=== PATIENT | female | born 1955 | race Caucasian/White ===

== ENCOUNTER 2017-12-06 17:34 | Emergency (ER) | payer OTHER, SELFPAY ==
[2017-12-06 17:46] VITALS: BP 155/73; PULSE 64; RESP 18; TEMP 36.3; O2SAT 100; BMI 24.7
--- NOTE | 2017-12-06 18:14 | ED_ITS ---
HPI - Headache <Huong Molina PA-C - Last Filed: 12/06/17 21:48> General Chief Complaint: Headache Stated Complaint: HEADACHE,NAUSEA,VOMITING Time Seen by Provider: 12/06/17 18:09 Source: patient and family Mode of arrival: ambulatory Limitations: no limitations History of Present Illness HPI Narrative: This 62-year-old female comes in due to migraine headache. She developed these headaches a couple of years ago that awaken her from sleep in the middle of the night. She saw Dr. London and had workup including MRI and was diagnosed with hypnic headache. She has tried caffeine which is been ineffective. She used to take large doses of ibuprofen and was diagnosed with duodenal ulcer so has had to discontinue all of those. She states that sometimes if she just rest in a dark room headaches will resolve, however this 1 has not. She states this is a typical bad headache for her, all over her head , ?splitting?. She states she has light sensitivity but normal vision. She has had nausea and vomiting and not had food or fluids today. She does not feel like this is different from her typical headache. She states that she has been sweating a little bit and not sure whether that is different, however she has not had any fever, recent upper respiratory symptoms, new chest pain, dyspnea, abdominal pain or other complaints Related Data Home Medications Medication Instructions Recorded Confirmed [SPIRULINA] #0 05/10/16 11/20/17 cholecalciferol (vitamin D3) 10,000 unit PO #0 05/10/16 11/20/17 omeprazole #0 01/22/17 11/20/17 clobetasol-emollient #0 02/04/17 11/20/17 Previous Rx's Medication Instructions Recorded coal tar [Elton-Gel Tar Shampoo] 1 rae TP HS PRN #118 ml 05/10/16 hydrocodone-acetaminophen 1 tab PO Q6HP PRN #30 tab 10/01/17 prednisone 10 mg PO SEE INSTRUCTIONS #14 tab 10/03/17 dextroamphetamine-amphetamine 10 mg PO QAM #60 tab 10/14/17 [Adderall] tramadol 50 mg tablet 50 mg PO Q6H PRN #60 tab 11/04/17 indomethacin 25 mg capsule 25 mg PO TID PRN #30 cap 11/11/17 colchicine 0.6 mg capsule 0.6 mg PO DAILY #30 cap 11/20/17 tramadol 50 mg tablet 100 mg PO TID PRN #60 tab 11/20/17 duloxetine 30 mg capsule,delayed 90 mg PO QDAY #90 cap 12/03/17 release Allergies Allergy/AdvReac Type Severity Reaction Status Date / Time grass pollen [GRASS POLLEN] Allergy Intermediate hayfever Verified 12/06/17 23: 56 mold [MOLD] Allergy Intermediate hayfever Verified 12/06/17 23:56 acetaminophen [From Vicodin] AdvReac Verified 12/06/17 23:56 hydrocodone [From Vicodin] AdvReac Verified 12/06/17 23:56 NSAIDS (Non-Steroidal AdvReac Verified 12/06/17 23:56 Anti-Inflamma sheelfish Allergy Severe anaphalaxis Uncoded 10/15/17 12:38 dust Allergy Intermediate hayfever Uncoded 10/15/17 12:38 weeds Allergy Intermediate hayfever Uncoded 10/15/17 12:38 Exam <Huong Molina PA-C - Last Filed: 12/06/17 21:48> Narrative Exam Narrative: GENERAL APPEARANCE: Patient resting in dark room, in NAD HEENT: PERRL, EOMI, normal TMs and oropharynx NECK: Supple LUNGS: Clear to auscultation bilaterally. HEART: Rate and rhythm regular without murmur, normal S1 and S2, no S3 or S4. ABDOMEN: Soft, NT, ND, + BS x 4 quadrants NEUROLOGIC: Alert and oriented, normal speech, and coordination. MUSCULOSKELETAL: Full Csp AROM Initial Vital Signs Initial Vital Signs: Vital Signs Temperature 97.4 F L 12/06/17 17:46 Pulse Rate 64 12/06/17 17:46 Respiratory Rate 18 12/06/17 17:46 Blood Pressure 155/73 H 12/06/17 17:46 Pulse Oximetry 100 12/06/17 17:46 <Jerad Marin DO - Last Filed: 12/07/17 00:55> Initial Vital Signs Initial Vital Signs: Vital Signs Temperature 97.4 F L 12/06/17 17:46 Pulse Rate 64 12/06/17 17:46 Respiratory Rate 18 12/06/17 17:46 Blood Pressure 155/73 H 12/06/17 17:46 Pulse Oximetry 100 12/06/17 17:46 Course <Huong Molina PA-C - Last Filed: 12/06/17 21:48> Hospital Course: Patient reported marked improvement in her pain and nausea with medications and IV fluids. She felt comfortable returning home. She was able to tolerate p.o. fluids and crackers prior to discharge Orders Ordered: Discontinued Medications Hydromorphone HCl (Dilaudid) 1 mg IV NOW ONE Stop: 12/06/17 18:29 Last Admin: 12/06/17 18:35 Dose: 1 mg Sodium Chloride (Normal Saline 0.9%) 1,000 mls @ 1,000 mls/hr IV BOLUS ONE Stop: 12/06/17 19:27 Last Infusion: 12/06/17 19:51 Dose: 0 mls/hr Admin: 12/06/17 18:35 Dose: 1,000 mls/hr Ondansetron HCl (Zofran) 4 mg IV NOW ONE Stop: 12/06/17 18:29 Last Admin: 12/06/17 18:35 Dose: 4 mg Vital Signs - 8 hr 12/06/17 17:46 12/06/17 20:20 Temperature 97.4 F L Pulse Rate 64 78 Respiratory Rate 18 15 Blood Pressure 155/73 H 127/72 H Pulse Oximetry 100 98 <Jerad Marin DO - Last Filed: 12/07/17 00:55> Orders Ordered: Discontinued Medications Hydromorphone HCl (Dilaudid) 1 mg IV NOW ONE Stop: 12/06/17 18:29 Last Admin: 12/06/17 18:35 Dose: 1 mg Sodium Chloride (Normal Saline 0.9%) 1,000 mls @ 1,000 mls/hr IV BOLUS ONE Stop: 12/06/17 19:27 Last Infusion: 12/06/17 19:51 Dose: 0 mls/hr Admin: 12/06/17 18:35 Dose: 1,000 mls/hr Ondansetron HCl (Zofran) 4 mg IV NOW ONE Stop: 12/06/17 18:29 Last Admin: 12/06/17 18:35 Dose: 4 mg Vital Signs - 8 hr 12/06/17 17:46 12/06/17 20:20 Temperature 97.4 F L Pulse Rate 64 78 Respiratory Rate 18 15 Blood Pressure 155/73 H 127/72 H Pulse Oximetry 100 98 Discharge Plan Departure Patient Disposition: Home, Self-Care Clinical Impression: Hypnic headache Discharge Date/Time: 12/06/17 20:23 Interventions: ED Discharge Assessment Last Done: 12/06/17 20:20 Instructions: DI for Migraine Activity Restrictions/Additional Instructions: You have had a good response to IV medications and fluids today. We have treated this similarly to a bad migraine and avoid anti-inflammatories due to your ulcer. Please rest in a quiet room tonight, drink fluids and try to have some bland food. Avoid loud noise and light. You should return if any new or acutely worsening symptoms. If you start to have more persistent headaches, you should talk with Dr London about effective home treatments. You may wish to talk with her about nausea medicine by suppository to have at home since oral medications have not been effective for you but the IV medicine was helpful today. Prescriptions: No Action tramadol 50 mg tablet 100 mg PO TID PRN (Reason: pain) Qty: 60 RF: 0 colchicine 0.6 mg capsule 0.6 mg PO DAILY Qty: 30 RF: 0 cholecalciferol (vitamin D3) 10,000 UNIT tablet 10,000 unit PO Qty: 0 RF: 0 [SPIRULINA] Qty: 0 RF: 0 coal tar [Elton-Gel Tar Shampoo] 118 ML shampoo 1 rae TP HS PRNQty: 118 RF: 1 omeprazole 40 MG capsule,delayed release(DR/EC) Qty: 0 RF: 0 clobetasol-emollient 0.05 % Cream Qty: 0 RF: 0 hydrocodone-acetaminophen 5 MG/325 MG tablet 1 tab PO Q6HP PRNQty: 30 RF: 0 prednisone 10 MG tablet 10 mg PO SEE INSTRUCTIONS Qty: 14 RF: 0 dextroamphetamine-amphetamine [Adderall] 10 MG tablet 10 mg PO QAM Qty: 60 RF: 0 tramadol 50 mg tablet 50 mg PO Q6H PRN (Reason: pain) Qty: 60 RF: 0 indomethacin 25 mg capsule 25 mg PO TID PRN (Reason: pain) Qty: 30 RF: 0 duloxetine 30 mg capsule,delayed release(DR/EC) 90 mg PO QDAY Qty: 90 RF: 2 Referrals: Eva Gutierrez PA-C [Primary Care Provider] - Radha Lodnon MD [Non-Staff] - <Jerad Marin DO - Last Filed: 12/07/17 00:55> Cosign ED Attending Bee Attestation: I was immediately available in the department for consultation. Documentation has been reviewed. I agree with assessment and plan.
[2017-12-06] MEDS: SODIUM CHLORIDE 0.9% 1,000 ML 1000 ML IV (18:35)
[2017-12-06] MEDS: HYDROMORPHONE 0.5 MG INJ 1 MG IV (18:35)
[2017-12-06] MEDS: ONDANSETRON 4 MG/2 ML INJ IV (18:35)
[2017-12-06 20:20] VITALS: BP 127/72; PULSE 78; RESP 15; O2SAT 98
== END 2017-12-06 20:23 | disposition home or self-care (01) ==
PROVIDERS: Emergency Provider Internal Medicine; PCP Physician Assistant
DX: R51 Headache (principal)
CPT/HCPCS: 36591; 99283; J1170; J2405

== ENCOUNTER 2017-12-06 23:45 | Emergency (ER) | payer OTHER, SELFPAY ==
[2017-12-06 23:56] VITALS: BP 135/82; PULSE 80; RESP 17; TEMP 36.1; O2SAT 100; BMI 24.7
--- NOTE | 2017-12-07 00:01 | ED.HA ---
HPI - Headache General Chief Complaint: Headache Stated Complaint: SEVERE MIGRAINE Time Seen by Provider: 12/06/17 23:59 Source: patient Mode of arrival: ambulatory Limitations: no limitations History of Present Illness HPI Narrative: Patient presents to the emergency department this morning, for the 2nd time today for evaluation of a terrible whole head headache. It started last evening and persisted through the day. She was seen and evaluated in the emergency department earlier and felt much better after some Dilaudid and Zofran. She went home for few hours and returned with intensified symptoms. She denies any recent injury or illness. She does have a history of hypnic headaches diagnosed by neurology at [facility]. MD Complaint: headache and migraine Onset (ago): hour(s) Onset description: gradual Severity: severe Quality: aching and throbbing Relieving factors: dark room Exacerbating factors: exertion, light and noise Context: occurred at rest Associated symptoms: nausea and vomiting Related Data Home Medications Medication Instructions Recorded Confirmed [SPIRULINA] #0 05/10/16 11/20/17 cholecalciferol (vitamin D3) 10,000 unit PO #0 05/10/16 11/20/17 omeprazole #0 01/22/17 11/20/17 clobetasol-emollient #0 02/04/17 11/20/17 Previous Rx's Medication Instructions Recorded coal tar [Elton-Gel Tar Shampoo] 1 rae TP HS PRN #118 ml 05/10/16 hydrocodone-acetaminophen 1 tab PO Q6HP PRN #30 tab 10/01/17 prednisone 10 mg PO SEE INSTRUCTIONS #14 tab 10/03/17 dextroamphetamine-amphetamine 10 mg PO QAM #60 tab 10/14/17 [Adderall] tramadol 50 mg tablet 50 mg PO Q6H PRN #60 tab 11/04/17 indomethacin 25 mg capsule 25 mg PO TID PRN #30 cap 11/11/17 colchicine 0.6 mg capsule 0.6 mg PO DAILY #30 cap 11/20/17 tramadol 50 mg tablet 100 mg PO TID PRN #60 tab 11/20/17 duloxetine 30 mg capsule,delayed 90 mg PO QDAY #90 cap 12/03/17 release Allergies Allergy/AdvReac Type Severity Reaction Status Date / Time grass pollen [GRASS POLLEN] Allergy Intermediate hayfever Verified 12/06/17 23:56 mold [MOLD] Allergy Intermediate hayfever Verified 12/06/17 23:56 acetaminophen [From Vicodin] AdvReac Verified 12/06/17 23:56 hydrocodone [From Vicodin] AdvReac Verified 12/06/17 23:56 NSAIDS (Non-Steroidal AdvReac Verified 12/06/17 23:56 Anti-Inflamma sheelfish Allergy Severe anaphalaxis Uncoded 10/15/17 12:38 dust Allergy Intermediate hayfever Uncoded 10/15/17 12:38 weeds Allergy Intermediate hayfever Uncoded 10/15/17 12:38 Review of Systems Review of Systems All systems reviewed & are unremarkable except as noted in HPI and below Constitutional Denies chills, Denies fever(s), Reports headache(s), Denies lethargy and Denies weakness Eyes Denies change in vision, Denies eye discharge, Denies irritation and Denies loss of vision ENT Ears, Nose, Mouth, and Throat: Denies change in voice, Reports headache(s), Denies neck pain and Denies sore throat Cardiovascular Denies chest pain, Denies irregular heart rhythm, Denies lightheadedness, Denies palpitations, Denies dyspnea, Denies dyspnea on exertion and Denies orthopnea Respiratory Denies cough, Denies dyspnea, Denies dyspnea on exertion and Denies wheezing Gastrointestinal Gastrointestinal: Denies abdominal pain, Denies change in bowel habits, Denies diarrhea, Denies nausea and Denies vomiting Genitourinary Denies hematuria, Denies flank pain, Denies urinary incontinence and Denies urinary urgency Musculoskeletal Denies neck pain Integumentary/Breasts Denies pruritus, Denies erythema, Denies rash and Denies wounds Neurologic Denies confusion, Reports headache(s), Denies loss of vision and Denies weakness Psychiatric Denies anxiety, Denies confusion, Denies depression, Denies homicidal ideation and Denies suicidal ideation Endocrine Denies palpitations Hematologic/Lymphatic Denies easy bruising Allergic/Immunologic Denies wheezing PFSH Medical History Hypnic headache (Chronic) Costochondritis (Chronic) Duodenal ulcer (Chronic) GERD without esophagitis (Chronic) Social History Smoking Status: Never smoker Exam Narrative Exam Narrative: 62-year-old female obviously in discomfort, in a dark room covering her eyes Initial Vital Signs Initial Vital Signs: Vital Signs Temperature 97.0 F L 12/06/17 23:56 Pulse Rate 80 12/06/17 23:56 Respiratory Rate 17 12/06/17 23:56 Blood Pressure 135/82 H 12/06/17 23:56 Pulse Oximetry 100 12/06/17 23:56 Const General: cooperative, well developed and acute distress Nutritional Appearance: well nourished Orientation: alert, awake, oriented x3 and not confused [facility] Head: normocephalic and atraumatic Ears: external ears normal and TM's normal bilaterally Nose: external nose normal and No nasal discharge Face and sinus: sinuses nontender, face symmetric, no sinus tenderness and No dry mucous membranes Mouth: oral mucosae normal and moist mucous membranes Teeth and gingiva: dentition normal Throat: tonsils normal and uvula midline Neck Neck: normal visual inspection, trachea midline, No lymphadenopathy, No midline deformity and No JVD Lymphatic: No lymphedema Resp Effort & Inspection: normal respiratory effort, able to speak in complete sentences, no respiratory distress and no use of accessory muscles Auscultation: clear to auscultation bilaterally, no rales, no rhonchi and no wheezes GI Inspection: non-distended Palpation: soft, no hepatosplenomegaly, No guarding, No pulsatile mass and No tender Auscultation: normal bowel sounds Back/Spine/Pelvis Back: No CVA tenderness Cervical Spine: cervical ROM normal and No pain with cervical ROM Thoracic/Lumbar Spine: thoracic and lumbar spine normal to inspection Neuro General: alert, oriented x3, gait normal and no focal motor deficits Speech: speech normal Gait: normal gait Motor: muscle tone normal throughout Other: NIH Stroke Scale 1a. LOC: Patient is alert and keenly responsive (0) 1b. LOC Questions: Patient answers both LOC questions accurately (0) 1c. LOC Commands: Patient performs both tasks correctly (0) 2. Best Gaze: Normal (0) 3. Visual: No visual loss (0) 4. Facial palsy: Normal symmetrical movements (0) 5. Motor arm: No drift (0) 6. Motor leg: No drift (0) 7. Limb ataxia: Absent (0) 8. Sensory: Normal (0) 9. Best language: No aphasia; normal (0) 10. Dysarthria: Normal (0) 11. Extinction and inattention: No abnormality (0) NIHSS: 0 Extrem General: full ROM, no clubbing, cyanosis or edema, no pedal edema and no calf tenderness Psych Appearance: well kempt Mental Status: mental status grossly normal Attitude: cooperative Thought Content: normal and suicidality Judgment: judgment good Course Orders Ordered: ED Orders 12/07/17 00:28 CT head/brain wo con Stat Discontinued Medications Diphenhydramine HCl (Benadryl) 25 mg IV NOW ONE Stop: 12/07/17 00:13 Last Admin: 12/07/17 00:36 Dose: 25 mg Sodium Chloride (Normal Saline 0.9%) 1,000 mls @ 1,000 mls/hr IV BOLUS ONE Stop: 12/07/17 01:11 Last Infusion: 12/07/17 02:07 Dose: 0 mls/hr Admin: 12/07/17 00:36 Dose: 1,000 mls/hr Ketorolac Tromethamine (Toradol) 15 mg IV NOW ONE Stop: 12/07/17 01:37 Last Admin: 12/07/17 01:45 Dose: 15 mg Metoclopramide HCl (Reglan) 10 mg IV NOW ONE Stop: 12/07/17 00:13 Last Admin: 12/07/17 00:36 Dose: 10 mg Reevaluation(s) Reevaluation #1: patient has near total resolution of symptoms after above stated therapies. She refused decadron as steroids make her feel strange. Time: 02:28 Vital Signs - 8 hr 12/06/17 23:56 12/07/17 00:46 12/07/17 02:25 Temperature 97.0 F L Pulse Rate 80 98 H Respiratory Rate 17 16 Blood Pressure 135/82 H Blood Pressure [Left Arm] 119/74 Pulse Oximetry 100 100 98 MDM - Headache Differential Diagnosis Differential diagnosis: Likely migraine, tension headache, subarachnoid hemorrhage, headache, meningitis and sinusitis Medical Records Attestation: I reviewed the patient's medical records. Imaging Data CT scan - head: Radiologist's impression: NAP Discharge Plan Departure Patient Disposition: Home, Self-Care Clinical Impression: Hypnic headache Instructions: DI for Migraine Prescriptions: No Action tramadol 50 mg tablet 100 mg PO TID PRN (Reason: pain) Qty: 60 RF: 0 colchicine 0.6 mg capsule 0.6 mg PO DAILY Qty: 30 RF: 0 cholecalciferol (vitamin D3) 10,000 UNIT tablet 10,000 unit PO Qty: 0 RF: 0 [SPIRULINA] Qty: 0 RF: 0 coal tar [Elton-Gel Tar Shampoo] 118 ML shampoo 1 rae TP HS PRNQty: 118 RF: 1 omeprazole 40 MG capsule,delayed release(DR/EC) Qty: 0 RF: 0 clobetasol-emollient 0.05 % Cream Qty: 0 RF: 0 hydrocodone-acetaminophen 5 MG/325 MG tablet 1 tab PO Q6HP PRNQty: 30 RF: 0 prednisone 10 MG tablet 10 mg PO SEE INSTRUCTIONS Qty: 14 RF: 0 dextroamphetamine-amphetamine [Adderall] 10 MG tablet 10 mg PO QAM Qty: 60 RF: 0 tramadol 50 mg tablet 50 mg PO Q6H PRN (Reason: pain) Qty: 60 RF: 0 indomethacin 25 mg capsule 25 mg PO TID PRN (Reason: pain) Qty: 30 RF: 0 duloxetine 30 mg capsule,delayed release(DR/EC) 90 mg PO QDAY Qty: 90 RF: 2 Referrals: Eva Gutierrez PA-C [Primary Care Provider] -
--- NOTE | 2017-12-07 00:28 | DI.CT.S_ITS ---
PROCEDURE: CT HEAD/BRAIN WO CON INDICATIONS: worst headache, second visit today TECHNIQUE: Noncontrast 4.5 mm thick angled axial sections acquired from the foramen magnum to the vertex, with coronal and sagittal reformats. For radiation dose reduction, the following was used: automated exposure control, adjustment of mA and/or kV according to patient size. COMPARISON: [facility], MR, MR BRAIN WO CON, 05/22/2016, 13:55. FINDINGS: Image quality: Excellent. CSF spaces: Basal cisterns are patent. No extra-axial fluid collections. The ventricles are symmetric in size and shape. Brain: No intracranial bleeds or masses. The punctate calcification is present within the right lentiform nucleus seen on the previous brain MRI dated 05/22/16. There is cerebral volume loss for age, with resultant ventricular and sulcal prominence. There are periventricular and deep white matter chronic small vessel ischemic changes. There is intracranial internal carotid artery atherosclerosis. Skull and face: Calvarium and visualized facial bones appear intact, without suspicious lesions. Sinuses: Visualized sinuses and mastoids are clear. IMPRESSION: 1. No acute intracranial findings. 2. Mild findings likely associated with microvascular ischemic changes. These findings are concordant with the overnight interpretation. Dictated by: Kassandra Sarabia M.D. on 12/07/2017 at 8:16 Approved by: Kassandra Sarabia M.D. on 12/07/2017 at 8:18
[2017-12-07] MEDS: SODIUM CHLORIDE 0.9% 1,000 ML 1000 ML IV (00:36)
[2017-12-07] MEDS: METOCLOPRAMIDE 10 MG/2 ML INJ IV (00:36)
[2017-12-07] MEDS: diphenhydrAMINE 50 MG/ML VIAL 25 MG IV (00:36)
--- NOTE | 2017-12-07 00:37 | PC.NURSE ---
Pt here earlier with same, sx. After going home her sx returned.
[2017-12-07 00:46] VITALS: O2SAT 100
[2017-12-07] MEDS: KETOROLAC 60 MG/2 ML VIAL 15 MG IV (01:45)
[2017-12-07 02:25] VITALS: BP 119/74; PULSE 98; RESP 16; O2SAT 98
--- NOTE | 2017-12-07 02:25 | PC.NURSE ---
Pt ambulated to bathroom and return to bed. Reports PATEL improved to 4/10 and nausea better. Pt taking sips of water. MD aware of the above.
== END 2017-12-07 02:41 | disposition home or self-care (01) ==
PROVIDERS: Emergency Provider Emergency Medicine; PCP Physician Assistant
DX: G44.81 Hypnic headache (principal)
CPT/HCPCS: 36591; 70450; 82962; 96361; 96374; 96375; 99283; 99284; J1170; J1200; J1885; J2405; J2765

== ENCOUNTER 2017-12-27 20:17 | Emergency (ER) | payer OTHER, SELFPAY ==
[2017-12-27 20:24] VITALS: BP 130/75; PULSE 61; RESP 20; TEMP 36.1; O2SAT 100; BMI 24.7
--- NOTE | 2017-12-27 20:38 | ED.NAVMDI ---
HPI - Nausea/Vomiting/Diarrhea <Huong Molina PA-C - Last Filed: 12/27/17 22:21> General Chief complaint: Nausea/Vomiting/Diarrhea Stated complaint: DEHYDRATION/WEAKNESS Time Seen by Provider: 12/27/17 20:25 Source: patient and family Mode of arrival: ambulatory Limitations: no limitations History of Present Illness HPI Narrative: This 62-year-old female returns due to persistent and constant nausea which has been an ongoing problem, to the point she is unable to eat at all in the last 4 days without vomiting. She has been unable to even keep down fluids in the last 2 days. She has not had any abdominal pain at all with this. She has had headache, which is not like her usual migraine or hip thank headache, but is as severe. Headache seems to come on and is worse when she vomits, gradually gets a little bit better when vomiting subsides. She states that she has had frequent sweats, but no known fevers. She has chronic chest and rib pain for which she is seeing Rheumatology. She denies any acute or worsening chest pain. She denies any dyspnea. No new pain in the extremities. She denies any bowel habit change or blood in the stools. She denies any urinary symptoms Related Data Home Medications Medication Instructions Recorded Confirmed [SPIRULINA] #0 05/10/16 11/20/17 cholecalciferol (vitamin D3) 10,000 unit PO #0 05/10/16 11/20/17 omeprazole #0 01/22/17 11/20/17 clobetasol-emollient #0 02/04/17 11/20/17 Previous Rx's Medication Instructions Recorded coal tar [Elton-Gel Tar Shampoo] 1 rae TP HS PRN #118 ml 05/10/16 hydrocodone-acetaminophen 1 tab PO Q6HP PRN #30 tab 10/01/17 prednisone 10 mg PO SEE INSTRUCTIONS #14 tab 10/03/17 dextroamphetamine-amphetamine 10 mg PO QAM #60 tab 10/14/17 [Adderall] tramadol 50 mg tablet 50 mg PO Q6H PRN #60 tab 11/04/17 indomethacin 25 mg capsule 25 mg PO TID PRN #30 cap 11/11/17 colchicine 0.6 mg capsule 0.6 mg PO DAILY #30 cap 11/20/17 duloxetine 30 mg capsule,delayed 90 mg PO QDAY #90 cap 12/03/17 release tramadol 50 mg tablet 100 mg PO TID PRN #90 tab 12/24/17 ondansetron 4 mg PO Q6H PRN #14 tab 12/27/17 Allergies Allergy/AdvReac Type Severity Reaction Status Date / Time grass pollen [GRASS POLLEN] Allergy Intermediate hayfever Verified 12/06/17 23:56 mold [MOLD] Allergy Intermediate hayfever Verified 12/06/17 23:56 acetaminophen [From Vicodin] AdvReac Verified 12/06/17 23:56 hydrocodone [From Vicodin] AdvReac Verified 12/06/17 23:56 NSAIDS (Non-Steroidal AdvReac Verified 12/06/17 23:56 Anti-Inflamma sheelfish Allergy Severe anaphalaxis Uncoded 10/15/17 12:38 dust Allergy Intermediate hayfever Uncoded 10/15/17 12:38 weeds Allergy Intermediate hayfever Uncoded 10/15/17 12:38 Review of Systems <Huong Molina PA-C - Last Filed: 12/27/17 22:21> Review of Systems All systems reviewed & are unremarkable except as noted in HPI and below Exam <Huong Molina PA-C - Last Filed: 12/27/17 22:21> Narrative Exam Narrative: GENERAL APPEARANCE: Patient resting in a dark room with ice pack on her head, in NAD HEENT: PERRL, EOMI, normal oropharynx NECK: Supple LUNGS: Clear to auscultation bilaterally. CHEST: Mild sternal and rib TTP HEART: Rate and rhythm regular without murmur, normal S1 and S2, no S3 or S4. ABDOMEN: Soft, NT, ND, + BS x 4 quadrants NEUROLOGIC: Alert and oriented, normal speech and coordination. EXTREMITIES: no cyanosis or edema Initial Vital Signs Initial Vital Signs: Vital Signs Temperature 96.9 F L 12/27/17 20:24 Pulse Rate 61 12/27/17 20:24 Respiratory Rate 20 12/27/17 20:24 Blood Pressure 130/75 H 12/27/17 20:24 Pulse Oximetry 100 12/27/17 20:24 <Salina Ramirez DO - Last Filed: 12/28/17 06:14> Initial Vital Signs Initial Vital Signs: Vital Signs Temperature 96.9 F L 12/27/17 20:24 Pulse Rate 61 12/27/17 20:24 Respiratory Rate 20 12/27/17 20:24 Blood Pressure 130/75 H 12/27/17 20:24 Pulse Oximetry 100 12/27/17 20:24 Eyes EOM: EOM intact bilaterally Neck Neck: full ROM and no meningeal signs Chest Chest: normal inspection of the chest Resp Effort & Inspection: normal respiratory effort GI Inspection: normal to inspection Palpation: soft, No guarding, No rigid and No tender Auscultation: normal bowel sounds Neuro General: alert, awake and oriented x3 Cranial Nerves: CN's II-XI intact bilaterally Cognition: normal cognition Speech: speech normal Gait: normal gait Course <Huong Molina PA-C - Last Filed: 12/27/17 22:21> Orders Ordered: ED Orders 12/27/17 21:50 Complete Blood Count AUTO DIFF Stat Comprehensive Metabolic Panel Stat Lipase Stat Partial Thromboplastin Time Stat Prothrombin Time INR Stat Discontinued Medications Diphenhydramine HCl (Benadryl) 25 mg IV NOW ONE Stop: 12/27/17 20:52 Last Admin: 12/27/17 21:15 Dose: 25 mg Sodium Chloride (Normal Saline 0.9%) 1,000 mls @ 1,000 mls/hr IV BOLUS ONE Stop: 12/27/17 21:50 Last Infusion: 12/27/17 22:55 Dose: 0 mls/hr Admin: 12/27/17 21:15 Dose: 1,000 mls/hr Sodium Chloride (Normal Saline 0.9%) 1,000 mls @ 1,000 mls/hr IV BOLUS ONE Stop: 12/27/17 23:07 Last Admin: 12/27/17 23:21 Dose: Ketorolac Tromethamine (Toradol) 30 mg IV NOW ONE Stop: 12/27/17 21:49 Last Admin: 12/27/17 22:03 Dose: 30 mg Metoclopramide HCl (Reglan) 10 mg IV NOW ONE Stop: 12/27/17 20:52 Last Admin: 12/27/17 21:15 Dose: 10 mg Vital Signs - 8 hr 12/27/17 22:30 Pulse Rate 77 Respiratory Rate 16 Blood Pressure [Right Arm] 142/77 H Pulse Oximetry 100 <Salina Ramirez DO - Last Filed: 12/28/17 06:14> Orders Ordered: ED Orders 12/27/17 21:50 Complete Blood Count AUTO DIFF Stat Comprehensive Metabolic Panel Stat Lipase Stat Partial Thromboplastin Time Stat Prothrombin Time INR Stat Discontinued Medications Diphenhydramine HCl (Benadryl) 25 mg IV NOW ONE Stop: 12/27/17 20:52 Last Admin: 12/27/17 21:15 Dose: 25 mg Sodium Chloride (Normal Saline 0.9%) 1,000 mls @ 1,000 mls/hr IV BOLUS ONE Stop: 12/27/17 21:50 Last Infusion: 12/27/17 22:55 Dose: 0 mls/hr Admin: 12/27/17 21:15 Dose: 1,000 mls/hr Sodium Chloride (Normal Saline 0.9%) 1,000 mls @ 1,000 mls/hr IV BOLUS ONE Stop: 12/27/17 23:07 Last Admin: 12/27/17 23:21 Dose: Ketorolac Tromethamine (Toradol) 30 mg IV NOW ONE Stop: 12/27/17 21:49 Last Admin: 12/27/17 22:03 Dose: 30 mg Metoclopramide HCl (Reglan) 10 mg IV NOW ONE Stop: 12/27/17 20:52 Last Admin: 12/27/17 21:15 Dose: 10 mg Vital Signs - 8 hr 12/27/17 22:30 Pulse Rate 77 Respiratory Rate 16 Blood Pressure [Right Arm] 142/77 H Pulse Oximetry 100 MDM - Nausea/Vomiting/Diarrhea <Huong Molina PA-C - Last Filed: 12/27/17 22:21> Lab Data Result diagrams: 12/27/17 21:50 12/27/17 21:50 Lab Results 12/27/17 12/27/17 12/27/17 Range/Units 21:50 21:50 21:50 WBC 6.9 (4.5-11.0) X10^3/uL RBC 4.62 (4.0-5.2) X10^6/uL Hgb 14.7 (12.0-16.0) g/dL Hct 43.9 (36-46) % MCV 94.9 (80-100) fL MCH 31.8 (26-34) PG MCHC 33.5 (30-36) % RDW 13.3 (11.6-14.8) % Plt Count 274 (150-400) X10^3/uL Neut % (Auto) 71.5 (50-75) % Lymph % (Auto) 17.4 L (25-40) % [place] % (Auto) 6.6 (3-14) % Eos % (Auto) 3.8 (2-4) % Baso % (Auto) 0.7 (0-2) % Neut # (Auto) 4900 (6621-3831) /uL PT 10.5 (10.1-12.7) SECONDS INR 1.0 (0.9-1.3) APTT 35 (26.4-36.2) SECONDS Sodium 143 (137-145) mmol/L Potassium 3.8 (3.4-5.1) mmol/L Chloride 105 (98-107) mmol/L Carbon Dioxide 23 (22-32) mmol/L BUN 16 (7-17) mg/dL Creatinine 0.80 (0.52-1.04) mg/dL Estimated GFR > 60.0 (>60) mL/min BUN/Creatinine Ratio 20.0 (6-22) Glucose 92 (80-110) mg/dL Calcium 9.7 (8.4-10.2) mg/dL Total Bilirubin 0.6 (0.2-1.3) mg/dL AST 30 (14-36) IU/L ALT 26 (9-52) IU/L Alkaline Phosphatase 65 (38-126) U/L Total Protein 7.4 (6.3-8.2) g/dL Albumin 4.6 (3.5-5.0) g/dL Globulin 2.8 (1.7-4.1) g/dL Albumin/Globulin Ratio 1.6 (1.0-2.8) Lipase 90 (23-300) U/L Imaging Data CT scan - head: Radiologist's impression: View Report History [address] [address] [address] Scan Report Signed Patient: Tiffanie Martinez MR#: [id number] : 1955 Acct:[id number] Age/Sex: 62 / F Date of Service: 12/27/17 Loc: ED Accession Number: [id number] Procedure: CT head/brain wo con Ordering Provider: Huong Molina P.A-C PROCEDURE: CT HEAD/BRAIN WO CON INDICATIONS: Headache, vomiting TECHNIQUE: Noncontrast 4.5 mm thick angled axial sections acquired from the foramen magnum to the vertex, with coronal and sagittal reformats. For radiation dose reduction, the following was used: automated exposure control, adjustment of mA and/or kV according to patient size. COMPARISON: [facility], CT, CT HEAD/BRAIN WO CON, 12/07/2017, 1:07. FINDINGS: Image quality: Diagnostic. CSF spaces: Basal cisterns are patent. No extra-axial fluid collections. Ventricles are slightly prominent. There is corresponding parenchymal volume loss that is more prominent overlying the bilateral frontal lobes. Brain: No midline shift. No intracranial masses or hemorrhage. Montes-white matter interface is normal. Skull and face: Calvarium and visualized facial bones are intact, without suspicious lesions. Sinuses: Visualized sinuses and mastoids are clear. IMPRESSION: 1. No acute intracranial hemorrhage. 2. Mild parenchymal volume loss. Dictated by: Garth Mathias M.D. on 12/27/2017 at 21:44 Approved by: Garth Mathias M.D. on 12/27/2017 at 21:45 ECG Data Attestation: I personally reviewed and interpreted this ECG as follows: (Normal sinus rhythm with rate 64, normal axis) Prior ECG tracings: not available for review <Salina Ramirez DO - Last Filed: 12/28/17 06:14> Lab Data Attestation: I reviewed the patient's lab results. Lab Results 12/27/17 12/27/17 12/27/17 Range/Units 21:50 21:50 21:50 WBC 6.9 (4.5-11.0) X10^3/uL RBC 4.62 (4.0-5.2) X10^6/uL Hgb 14.7 (12.0-16.0) g/dL Hct 43.9 (36-46) % MCV 94.9 (80-100) fL MCH 31.8 (26-34) PG MCHC 33.5 (30-36) % RDW 13.3 (11.6-14.8) % Plt Count 274 (150-400) X10^3/uL Neut % (Auto) 71.5 (50-75) % Lymph % (Auto) 17.4 L (25-40) % [place] % (Auto) 6.6 (3-14) % Eos % (Auto) 3.8 (2-4) % Baso % (Auto) 0.7 (0-2) % Neut # (Auto) 4900 (5807-7402) /uL PT 10.5 (10.1-12.7) SECONDS INR 1.0 (0.9-1.3) APTT 35 (26.4-36.2) SECONDS Sodium 143 (137-145) mmol/L Potassium 3.8 (3.4-5.1) mmol/L Chloride 105 (98-107) mmol/L Carbon Dioxide 23 (22-32) mmol/L BUN 16 (7-17) mg/dL Creatinine 0.80 (0.52-1.04) mg/dL Estimated GFR > 60.0 (>60) mL/min BUN/Creatinine Ratio 20.0 (6-22) Glucose 92 (80-110) mg/dL Calcium 9.7 (8.4-10.2) mg/dL Total Bilirubin 0.6 (0.2-1.3) mg/dL AST 30 (14-36) IU/L ALT 26 (9-52) IU/L Alkaline Phosphatase 65 (38-126) U/L Total Protein 7.4 (6.3-8.2) g/dL Albumin 4.6 (3.5-5.0) g/dL Globulin 2.8 (1.7-4.1) g/dL Albumin/Globulin Ratio 1.6 (1.0-2.8) Lipase 90 (23-300) U/L Imaging Data CT scan - head: Radiologist's impression: INDICATIONS: Headache, vomiting TECHNIQUE: Noncontrast 4.5 mm thick angled axial sections acquired from the foramen magnum to the vertex, with coronal and sagittal reformats. For radiation dose reduction, the following was used: automated exposure control, adjustment of mA and/or kV according to patient size. COMPARISON: [facility], CT, CT HEAD/BRAIN WO CON, 12/07/2017, 1:07. FINDINGS: Image quality: Diagnostic. CSF spaces: Basal cisterns are patent. No extra-axial fluid collections. Ventricles are slightly prominent. There is corresponding parenchymal volume loss that is more prominent overlying the bilateral frontal lobes. Brain: No midline shift. No intracranial masses or hemorrhage. Montes-white matter interface is normal. Skull and face: Calvarium and visualized facial bones are intact, without suspicious lesions. Sinuses: Visualized sinuses and mastoids are clear. IMPRESSION: 1. No acute intracranial hemorrhage. 2. Mild parenchymal volume loss. Dictated by: Garth Mathias M.D. on 12/27/2017 at 21:44 ECG Data Attestation: I personally reviewed and interpreted this ECG as follows: Prior ECG tracings: not available for review Interpretation: Normal sinus rhythm rate [address] changes no ischemia normal intervals MDM Narrative Medical decision making narrative: The patient is having increasing headaches. No fever no sign of meningitis. 2 head CTs are negative. She may require an MRI. He also recommend that she follow up with Neurology and or headache specialist. Discharge Plan Departure Patient Disposition: Home, Self-Care Clinical Impression: Migraine Discharge Date/Time: 12/27/17 23:22 Interventions: ED Discharge Assessment Last Done: 12/27/17 23:18 Instructions: Migraine -- Adult Activity Restrictions/Additional Instructions: 1) You have been diagnosed with migraine headache 2) What to do: Drink frequent but small amounts of fluids. I recommend Gatorade or a Gatorade-like product, as it has small amounts of sugar and salts that improve fluid retention. 3) Take medications as directed -Zofran every 6 hr if needed for nausea this prescription has been faxed to [facility] 4) Follow up with your primary care provider in 2-3 days, recommend seeing headache specialist-there is a group associated with [facility] 5) Return to ER if you should have any new or worsening symptoms such as, change or worsening headache, unable to hold down fluids despite use of anti-nausea medications and the small volume oral rehydration strategy. Prescriptions: New ondansetron 4 mg tablet,disintegrating 4 mg PO Q6H PRN (Reason: nausea and vomiting) Qty: 14 RF: 0 No Action colchicine 0.6 mg capsule 0.6 mg PO DAILY Qty: 30 RF: 0 cholecalciferol (vitamin D3) 10,000 UNIT tablet 10,000 unit PO Qty: 0 RF: 0 [SPIRULINA] Qty: 0 RF: 0 coal tar [Elton-Gel Tar Shampoo] 118 ML shampoo 1 rae TP HS PRNQty: 118 RF: 1 omeprazole 40 MG capsule,delayed release(DR/EC) Qty: 0 RF: 0 clobetasol-emollient 0.05 % Cream Qty: 0 RF: 0 hydrocodone-acetaminophen 5 MG/325 MG tablet 1 tab PO Q6HP PRNQty: 30 RF: 0 prednisone 10 MG tablet 10 mg PO SEE INSTRUCTIONS Qty: 14 RF: 0 dextroamphetamine-amphetamine [Adderall] 10 MG tablet 10 mg PO QAM Qty: 60 RF: 0 tramadol 50 mg tablet 50 mg PO Q6H PRN (Reason: pain) Qty: 60 RF: 0 indomethacin 25 mg capsule 25 mg PO TID PRN (Reason: pain) Qty: 30 RF: 0 duloxetine 30 mg capsule,delayed release(DR/EC) 90 mg PO QDAY Qty: 90 RF: 2 tramadol 50 mg tablet 100 mg PO TID PRN (Reason: pain) Qty: 90 RF: 3 Referrals: [facility] [Provider Group] [facility] [Provider Group] [facility] [Provider Group] Eva Gutierrez PA-C [Primary Care Provider] - ED Cosign/Signout <Huong Molina PA-C - Last Filed: 12/27/17 22:21> Sign Out Provider Sign Out Attestation: I have reviewed findings available thus far with patient including no acute findings on head CT or EKG. She is feeling significantly better in terms of nausea and states this is largely resolved. She just received Toradol and lab came to redraw her labs so these are pending. History and exam findings including lack of abdominal tenderness reviewed with Dr. Ramirez who will monitor and continue care <Salina Ramirez DO - Last Filed: 12/28/17 06:14> Cosign ED Attending Cosignature Attestation: I was immediately available in the department for consultation. Documentation has been reviewed. I agree with assessment and plan. I have seen and evaluated patient myself. She is feeling much better. She states that she has had multiple nausea medications none of which have helped. She has been to the ED a few times now with headaches. She has never had this many this close together. I recommend that she follow up with Neurology or headache Clinic. She is tolerating oral fluids.
--- NOTE | 2017-12-27 20:51 | DI.CT.S_ITS ---
PROCEDURE: CT HEAD/BRAIN WO CON INDICATIONS: Headache, vomiting TECHNIQUE: Noncontrast 4.5 mm thick angled axial sections acquired from the foramen magnum to the vertex, with coronal and sagittal reformats. For radiation dose reduction, the following was used: automated exposure control, adjustment of mA and/or kV according to patient size. COMPARISON: [facility], CT, CT HEAD/BRAIN WO CON, 12/07/2017, 1:07. FINDINGS: Image quality: Diagnostic. CSF spaces: Basal cisterns are patent. No extra-axial fluid collections. Ventricles are slightly prominent. There is corresponding parenchymal volume loss that is more prominent overlying the bilateral frontal lobes. Brain: No midline shift. No intracranial masses or hemorrhage. Montes-white matter interface is normal. Skull and face: Calvarium and visualized facial bones are intact, without suspicious lesions. Sinuses: Visualized sinuses and mastoids are clear. IMPRESSION: 1. No acute intracranial hemorrhage. 2. Mild parenchymal volume loss. Dictated by: Garth Mathias M.D. on 12/27/2017 at 21:44 Approved by: aGrth Mathias M.D. on 12/27/2017 at 21:45
[2017-12-27] MEDS: SODIUM CHLORIDE 0.9% 1,000 ML 1000 ML IV (21:15)
[2017-12-27] MEDS: METOCLOPRAMIDE 10 MG/2 ML INJ IV (21:15)
[2017-12-27] MEDS: diphenhydrAMINE 50 MG/ML VIAL 25 MG IV (21:15)
[2017-12-27 21:30] VITALS: BP 147/77; PULSE 75; RESP 17; O2SAT 100
[2017-12-27] MEDS: KETOROLAC 60 MG/2 ML VIAL 30 MG IV (22:03)
[2017-12-27 22:09] LABS: Add Manual Diff / Slide Review NO; Basophils Percent Auto 0.7 % (0-2); Eosinophils Percent Auto 3.8 % (2-4); Hematocrit 43.9 % (36-46); Hemoglobin 14.7 g/dL (12.0-16.0); Lymphocytes Percent Auto 17.4 % (25-40); Mean Corpuscular HGB Conc 33.5 % (30-36); Mean Corpuscular Hemoglobin 31.8 PG (26-34); Mean Corpuscular Volume 94.9 fL (80-100); Monocytes Percent Auto 6.6 % (3-14); Neutrophils Absolute Auto 4900 /uL (3000-5900); Neutrophils Percent Auto 71.5 % (50-75); Platelet Count 274 X10^3/uL (150-400); Red Blood Cell Count 4.62 X10^6/uL (4.0-5.2); Red Cell Distribution Width 13.3 % (11.6-14.8); White Blood Cell Count 6.9 X10^3/uL (4.5-11.0)
[2017-12-27 22:12] LABS: Prothrombin Time 10.5 SECONDS (10.1-12.7)
[2017-12-27 22:15] LABS: PTT Partial Thromboplastin Tim 35 SECONDS (26.4-36.2)
[2017-12-27 22:16] LABS: Alanine Aminotransferase 26 IU/L (9-52); Albumin 4.6 g/dL (3.5-5.0); Albumin Globulin Ratio 1.6 (1.0-2.8); Alkaline Phosphatase 65 U/L (38-126); Aspartate Aminotransferase 30 IU/L (14-36); Bilirubin Total 0.6 mg/dL (0.2-1.3); Blood Urea Nitrogen 16 mg/dL (7-17); Calcium 9.7 mg/dL (8.4-10.2); Carbon Dioxide 23 mmol/L (22-32); Chloride 105 mmol/L (98-107); Estimated Glomerular Filt Rate > 60.0 mL/min (>60); Globulin 2.8 g/dL (1.7-4.1); Glucose 92 mg/dL (80-110); HEMOLYSIS < 15 (0-50); Lipase 90 U/L (23-300); Potassium 3.8 mmol/L (3.4-5.1); Sodium 143 mmol/L (137-145); Total Protein 7.4 g/dL (6.3-8.2)
[2017-12-27 22:30] VITALS: BP 142/77; PULSE 77; RESP 16; O2SAT 100
== END 2017-12-27 23:22 | disposition home or self-care (01) ==
PROVIDERS: Emergency Provider Internal Medicine; PCP Physician Assistant
DX: G43.909 Migraine, unspecified, not intractable, without status migrainosus (principal)
CPT/HCPCS: 36415; 36591; 70450; 80053; 83690; 85025; 85610; 85730; 93005; 93010; 96361; 96374; 96375; 99283; 99285; J1200; J1885; J2765

== ENCOUNTER → 2018-03-31 16:17 | Outpatient (CLI) | payer OTHER, SELFPAY ==
[2018-03-31 16:48] LABS: Appearance Urine UA CLEAR; Bilirubin Urine UA NEGATIVE (NEGATIVE); Color Urine UA YELLOW; Glucose Urine UA NEGATIVE (Normal); Ketones Urine UA NEGATIVE (NEGATIVE); Leukocyte Esterase Urine UA 1+ (NEGATIVE); Nitrite Urine UA Negative (Negative); Occult Blood Urine UA 1+ (Negative); Protein Urine UA NEGATIVE (Negative); Urobilinogen Urine UA 0.2 E.U./dL (0.2); pH Urine UA 7.5 (4.5-8.0)
[2018-03-31 17:54] LABS: Alanine Aminotransferase 21 IU/L (9-52); Albumin Globulin Ratio 1.8 (1.0-2.8); Alkaline Phosphatase 46 U/L (38-126); Amylase 125 U/L (30-110); Aspartate Aminotransferase 24 IU/L (14-36); BUN Creatinine Ratio 15.6 (6-22); Bilirubin Total 0.3 mg/dL (0.2-1.3); Blood Urea Nitrogen 14 mg/dL (7-17); Calcium 9.6 mg/dL (8.4-10.2); Carbon Dioxide 34 mmol/L (22-32); Chloride 101 mmol/L (98-107); Estimated Glomerular Filt Rate > 60.0 mL/min (>60); Globulin 2.2 g/dL (1.7-4.1); Glucose 117 mg/dL (80-110); HEMOLYSIS < 15 (0-50); Lipase 652 U/L (23-300); Potassium 4.1 mmol/L (3.4-5.1); Sodium 142 mmol/L (137-145); Total Protein 6.2 g/dL (6.3-8.2)
[2018-03-31 17:55] LABS: Amorphous Sediment Urine 1+; Bacteria Urine Few (2-10); Culture Indicated Urine Specimen Cultured; RBC Urine 1-5/HPF (0-5/HPF); Squamous Epithelial Cell Urine 0-1 /HPF; WBC Urine 1-5/HPF (0-5/HPF)
[2018-03-31 18:41] LABS: Add Manual Diff / Slide Review NO; Basophils Percent Auto 0.7 % (0-2); Eosinophils Percent Auto 8.4 % (2-4); Hemoglobin 12.5 g/dL (12.0-16.0); Lymphocytes Percent Auto 33.3 % (25-40); Mean Corpuscular HGB Conc 33.9 % (30-36); Mean Corpuscular Hemoglobin 31.9 PG (26-34); Monocytes Percent Auto 9.3 % (3-14); Neutrophils Absolute Auto 2900 /uL (3000-5900); Neutrophils Percent Auto 48.3 % (50-75); Platelet Count 291 X10^3/uL (150-400); Red Blood Cell Count 3.93 X10^6/uL (4.0-5.2); Red Cell Distribution Width 13.3 % (11.6-14.8)
== END ==
PROVIDERS: PCP Family Medicine; Visit Provider Family Medicine
DX: R10.13 Epigastric pain (principal); Z01.83 Encounter for blood typing
CPT/HCPCS: 36415; 80053; 81003; 81015; 82150; 83690; 85025; 86850; 86900; 86901; 87086

== ENCOUNTER 2018-03-31 21:39 | Emergency (ER) | payer OTHER, SELFPAY ==
[2018-03-31 21:42] VITALS: BP 128/74; PULSE 73; RESP 18; TEMP 36.1; O2SAT 100; BMI 23.0
--- NOTE | 2018-03-31 22:07 | ED.ABDPAIN ---
HPI - Abdominal Pain General Chief Complaint: Abdominal Pain Stated Complaint: ABNORMAL LABS Time Seen by Provider: 03/31/18 21:59 Source: patient and family Mode of arrival: ambulatory Limitations: no limitations History of Present Illness HPI narrative: 63-year-old female presents with family and a chief complaint of abnormal labs including an elevated lipase as noted on routine lab work ordered by her primary care provider. Patient has had chronic epigastric and bony rib pain for least 6 months which has been very thoroughly evaluated by her primary care provider with ultrasounds, cat scan, MRI, GI referral and others. Patient has ongoing pain despite the use of pain patches and other prescription therapies. She denies any change in her symptoms whatsoever. She has no increased nausea nor fever or chills. She has no change in appetite or bowel habits. She is here for evaluation of abnormal lipase. She denies alcohol use MD complaint: abdominal pain Onset (ago): month(s) Pain Consistency: constant Location: epigastric Severity: mild Quality: cramping and aching Radiation: none Migration to: no migration Relieving factors: nothing Exacerbating factors: nothing Associated symptoms: nausea Related Data Home Medications Medication Instructions Recorded Confirmed [SPIRULINA] #0 05/10/16 11/20/17 cholecalciferol (vitamin D3) 10,000 unit PO #0 05/10/16 11/20/17 clobetasol-emollient #0 02/04/17 11/20/17 Previous Rx's Medication Instructions Recorded duloxetine 30 mg capsule,delayed 90 mg PO QDAY #90 cap 12/03/17 release tramadol 50 mg tablet 100 mg PO TID PRN #90 tab 12/24/17 oxycodone-acetaminophen 5 mg-325 See Label Instructions .ROUTE 02/11/18 mg tablet .COMPLEX PRN #60 tab tramadol 50 mg tablet See Label Instructions .ROUTE 02/11/18 .COMPLEX #90 tab ondansetron 4 mg disintegrating 4 mg PO BID PRN #60 tab 03/04/18 tablet Allergies Allergy/AdvReac Type Severity Reaction Status Date / Time grass pollen [GRASS POLLEN] Allergy Intermediate hayfever Verified 03/31/18 21:42 mold [MOLD] Allergy Intermediate hayfever Verified 03/31/18 21:42 acetaminophen [From Vicodin] AdvReac Verified 03/31/18 21:42 hydrocodone [From Vicodin] AdvReac Verified 03/31/18 21:42 NSAIDS (Non-Steroidal AdvReac Verified 03/31/18 21:42 Anti-Inflamma sheelfish Allergy Severe anaphalaxis Uncoded 02/11/18 11:19 dust Allergy Intermediate hayfever Uncoded 02/11/18 11:19 weeds Allergy Intermediate hayfever Uncoded 02/11/18 11:19 Review of Systems Review of Systems All systems reviewed & are unremarkable except as noted in HPI and below Constitutional Denies chills, Denies fever(s), Reports headache(s), Denies lethargy and Denies weakness Eyes Denies change in vision, Denies eye discharge, Denies irritation and Denies loss of vision ENT Ears, Nose, Mouth, and Throat: Denies change in voice, Reports headache(s), Denies neck pain and Denies sore throat Cardiovascular Denies chest pain, Denies irregular heart rhythm, Denies lightheadedness, Denies palpitations, Denies dyspnea, Denies dyspnea on exertion and Denies orthopnea Respiratory Denies cough, Denies dyspnea, Denies dyspnea on exertion and Denies wheezing Gastrointestinal Gastrointestinal: Reports abdominal pain, Denies change in bowel habits, Denies diarrhea, Denies nausea and Denies vomiting Genitourinary Denies hematuria, Denies flank pain, Denies urinary incontinence and Denies urinary urgency Musculoskeletal Denies neck pain Integumentary/Breasts Denies pruritus, Denies erythema, Denies rash and Denies wounds Neurologic Denies confusion, Reports headache(s), Denies loss of vision and Denies weakness Psychiatric Denies anxiety, Denies confusion, Denies depression, Denies homicidal ideation and Denies suicidal ideation Endocrine Denies palpitations Hematologic/Lymphatic Denies easy bruising Allergic/Immunologic Denies wheezing PFSH Medical History Costochondritis (Chronic) Depression (Chronic Unknown) Dermatitis (Chronic Unknown) Duodenal ulcer (Chronic) GERD without esophagitis (Chronic) Hiatal hernia (Chronic ~02/2017) Hypnic headache (Chronic) Surgical History Hx of eye surgery (Resolved 1955) Hx of knee surgery (Resolved 2004) Family History Father Cancer Mother Cancer Sister Cancer Social History Smoking Status: Never smoker alcohol intake: never Exam Narrative Exam Narrative: GEN: AOx3 and in mild distress EYES: Pupils are equal, round, and reactive to light and accommodation. Extraoccular muscles are intact bilaterally. There is no subconjunctival hemorrhage or exudate. CHEST: Lungs are clear to auscultation bilaterally and free of wheezes, rales, or rhonchi. Heart rate is regular rhythm, there are no murmurs, clicks, rubs, or gallops. There is no chest wall tenderness. ABD: Abdomen is soft and mildly tender in the epigastric. There is no guarding or rebound. Bowel sounds are normal in all 4 quadrants. There is no mass or organomegaly. EXT: Full painless ROM of all extremities with no loss of sensation or strength. SKIN: Warm, pink, and dry. No erythema or rash Initial Vital Signs Initial Vital Signs: Vital Signs Temperature 97.0 F L 03/31/18 21:42 Pulse Rate 73 03/31/18 21:42 Respiratory Rate 18 03/31/18 21:42 Blood Pressure 128/74 03/31/18 21:42 Pulse Oximetry 100 03/31/18 21:42 Course Orders Ordered: ED Orders 03/31/18 21:53 EKG-12 Lead Stat 03/31/18 22:28 US abdomen complete Stat 03/31/18 22:40 Complete Blood Count AUTO DIFF Stat Comprehensive Metabolic Panel Stat Lipase Stat Partial Thromboplastin Time Stat Prothrombin Time INR Stat Discontinued Medications Hydromorphone HCl (Dilaudid) 0.5 mg IV NOW ONE Stop: 03/31/18 22:30 Last Admin: 03/31/18 23:02 Dose: 0.5 mg Sodium Chloride (Normal Saline 0.9%) 1,000 mls @ 1,000 mls/hr IV BOLUS ONE Stop: 03/31/18 23:28 Last Infusion: 03/31/18 23:52 Dose: 0 mls/hr Admin: 03/31/18 23:02 Dose: 1,000 mls/hr Vital Signs - 8 hr 03/31/18 21:42 03/31/18 23:00 03/31/18 23:52 Temperature 97.0 F L 97.0 F L Pulse Rate 73 73 78 Respiratory Rate 18 18 Blood Pressure 128/74 128/74 Blood Pressure [Left Arm] 151/73 H Pulse Oximetry 100 100 98 MDM - Abdominal Pain Lab Data Result diagrams: 03/31/18 22:40 03/31/18 22:40 Lab Results 03/31/18 03/31/18 03/31/18 Range/Units 22:40 22:40 22:40 WBC 6.9 (4.5-11.0) X10^3/uL RBC 3.69 L (4.0-5.2) X10^6/uL Hgb 11.9 L (12.0-16.0) g/dL Hct 34.3 L (36-46) % MCV 92.9 (80-100) fL MCH 32.1 (26-34) PG MCHC 34.6 (30-36) % RDW 13.8 (11.6-14.8) % Plt Count 267 (150-400) X10^3/uL Neut % (Auto) 46.0 L (50-75) % Lymph % (Auto) 34.0 (25-40) % Hemphill % (Auto) 11.1 (3-14) % Eos % (Auto) 8.0 H (2-4) % Baso % (Auto) 0.9 (0-2) % Neut # (Auto) 3200 (1568-6860) /uL PT 10.6 (10.1-12.7) SECONDS INR 1.0 (0.9-1.3) APTT 31 D (26.4-36.2) SECONDS Sodium 139 (137-145) mmol/L Potassium 3.9 (3.4-5.1) mmol/L Chloride 100 (98-107) mmol/L Carbon Dioxide 32 (22-32) mmol/L BUN 20 H (7-17) mg/dL Creatinine 0.90 (0.52-1.04) mg/dL Estimated GFR > 60.0 (>60) mL/min BUN/Creatinine Ratio 22.2 H (6-22) Glucose 100 (80-110) mg/dL Calcium 9.9 (8.4-10.2) mg/dL Total Bilirubin 0.2 (0.2-1.3) mg/dL AST 25 (14-36) IU/L ALT 21 (9-52) IU/L Alkaline Phosphatase 46 (38-126) U/L Total Protein 6.4 (6.3-8.2) g/dL Albumin 4.1 (3.5-5.0) g/dL Globulin 2.3 (1.7-4.1) g/dL Albumin/Globulin Ratio 1.8 (1.0-2.8) Lipase 218 D (23-300) U/L [facility] Narrative Medical decision making narrative: Patient sent for abnormal labs, patient has no new symptoms, pain has been present for many months and she denies any change. Repeat evaluation of labs are normal. She has appropriate pain and nausea control at home. She is able to tolerate food, drink and oral medications Discharge Plan Departure Patient Disposition: Home Clinical Impression: Acute pancreatitis Discharge Date/Time: 03/31/18 23:55 Interventions: ED Discharge Assessment Last Done: 03/31/18 23:54 Instructions: Acute Pancreatitis Activity Restrictions/Additional Instructions: 1. Drink plenty of fluids with frequent small sips. 2. For the next 24 hours a clear liquid diet is advised. After that please employ a brat diet which would include bananas, rice, apples, toast. 3. Please take medications as directed. 4. Please follow-up with your doctor in the next 1-2 days. Call the office for an appointment. 5. Please return to the emergency Department for any worsening or persistent symptoms, such as increasing pain or fever. Prescriptions: No Action tramadol 50 mg tablet See Label Instructions .ROUTE .COMPLEX Qty: 90 RF: 0 oxycodone-acetaminophen [Percocet] 5-325 mg tablet See Label Instructions .ROUTE .COMPLEX PRN (Reason: pain) Qty: 60 RF: 0 cholecalciferol (vitamin D3) 10,000 UNIT tablet 10,000 unit PO Qty: 0 RF: 0 [SPIRULINA] Qty: 0 RF: 0 clobetasol-emollient 0.05 % Cream Qty: 0 RF: 0 duloxetine 30 mg capsule,delayed release(DR/EC) 90 mg PO QDAY Qty: 90 RF: 2 tramadol 50 mg tablet 100 mg PO TID PRN (Reason: pain) Qty: 90 RF: 3 ondansetron 4 mg tablet,disintegrating 4 mg PO BID PRN (Reason: nausea and vomiting) Qty: 60 RF: 3 Referrals: Rose Marie Clarke DO [Primary Care Provider] -
--- NOTE | 2018-03-31 22:28 | DI.US.S_ITS ---
PROCEDURE: US ABDOMEN COMPLETE INDICATIONS: EPIGASTRIC PAIN TECHNIQUE: Real-time scanning was performed of the abdominal and retroperitoneal organs, with image documentation. COMPARISON: [facility], MR, ABDOMEN W&WO CONTRAST, 10/03/2017, 13:00. FINDINGS: Liver: Liver is normal in size and homogeneous in echotexture. Gallbladder: There is a 4.3 mm of polyp in the anterior wall of the gallbladder. No gallstones. No pericholecystic fluid collection. The gallbladder wall thickness is normal. There is positive sonographic Laura sign. Biliary ducts: Intrahepatic bile ducts are non-dilated. Extrahepatic bile duct caliber measures 0.4 mm. Normal is 6-7 mm or less in diameter, or 10 mm or less post-cholecystectomy. Pancreas: Visualized portions of the pancreas are sonographically normal. Spleen: Spleen is normal in size and homogeneous in echotexture. Kidneys: Kidneys are normal in size and echotexture. Right kidney measures 10.1 cm long; left kidney measures 9.2 cm long. No hydronephrosis or nephrolithiasis. No solid masses. Aorta: Visualized aorta is normal in caliber at less than 3 cm. Iliacs: Proximal common iliac arteries are normal in caliber at less than 2.5 cm. IVC: Intrahepatic inferior vena cava is patent. Miscellaneous: No free abdominal fluid. IMPRESSION: 1. No gallstones or ultrasound evidence for acute cholecystitis. There is positive sonographic Laura sign. 2. A 4.3 mm gallbladder polyp. Followup ultrasound suggested at 1 year, 3 years, and 5 years. Dictated by: Vernon Yanez M.D. on 04/01/2018 at 9:37 Approved by: Vernon Yanez M.D. on 04/01/2018 at 9:47
[2018-03-31 22:59] LABS: Add Manual Diff / Slide Review NO; Basophils Percent Auto 0.9 % (0-2); Hematocrit 34.3 % (36-46); Hemoglobin 11.9 g/dL (12.0-16.0); Mean Corpuscular HGB Conc 34.6 % (30-36); Mean Corpuscular Hemoglobin 32.1 PG (26-34); Mean Corpuscular Volume 92.9 fL (80-100); Monocytes Percent Auto 11.1 % (3-14); Neutrophils Absolute Auto 3200 /uL (3000-5900); Platelet Count 267 X10^3/uL (150-400); Red Blood Cell Count 3.69 X10^6/uL (4.0-5.2); Red Cell Distribution Width 13.8 % (11.6-14.8); White Blood Cell Count 6.9 X10^3/uL (4.5-11.0)
[2018-03-31 23:00] VITALS: BP 128/74; PULSE 73; RESP 18; TEMP 36.1; O2SAT 100; BMI 23.0
[2018-03-31] MEDS: HYDROMORPHONE 0.5 MG INJ IV (23:02)
[2018-03-31] MEDS: SODIUM CHLORIDE 0.9% 1,000 ML 1000 ML IV (23:02)
[2018-03-31 23:05] LABS: Prothrombin Time 10.6 SECONDS (10.1-12.7)
[2018-03-31 23:07] LABS: PTT Partial Thromboplastin Tim 31 SECONDS (26.4-36.2)
[2018-03-31 23:09] LABS: Alanine Aminotransferase 21 IU/L (9-52); Albumin 4.1 g/dL (3.5-5.0); Albumin Globulin Ratio 1.8 (1.0-2.8); Alkaline Phosphatase 46 U/L (38-126); Aspartate Aminotransferase 25 IU/L (14-36); BUN Creatinine Ratio 22.2 (6-22); Bilirubin Total 0.2 mg/dL (0.2-1.3); Blood Urea Nitrogen 20 mg/dL (7-17); Calcium 9.9 mg/dL (8.4-10.2); Carbon Dioxide 32 mmol/L (22-32); Chloride 100 mmol/L (98-107); Estimated Glomerular Filt Rate > 60.0 mL/min (>60); Globulin 2.3 g/dL (1.7-4.1); Glucose 100 mg/dL (80-110); HEMOLYSIS < 15 (0-50); Lipase 218 U/L (23-300); Potassium 3.9 mmol/L (3.4-5.1); Sodium 139 mmol/L (137-145); Total Protein 6.4 g/dL (6.3-8.2)
[2018-03-31 23:52] VITALS: BP 151/73; PULSE 78; O2SAT 98
== END 2018-03-31 23:55 | disposition home or self-care (01) ==
PROVIDERS: Emergency Provider Emergency Medicine; Family Provider Family Medicine; PCP Family Medicine
DX: K85.90 Acute pancreatitis without necrosis or infection, unspecified (principal)
CPT/HCPCS: 36415; 36591; 76700; 80053; 81003; 81015; 82150; 83690; 85025; 85610; 85730; 86850; 86900; 86901; 87086; 87147; 93005; 96361; 96374; 99283; 99285; J1170

== ENCOUNTER → 2018-05-25 15:09 | Outpatient (CLI) | payer OTHER, SELFPAY ==
[2018-05-25 16:26] LABS: Cholesterol 233 mg/dL (140-199); HDL Cholesterol 59 mg/dL (40-60); LDL Cholesterol Calculated 158 mg/dL (<100); Triglycerides 81 mg/dL (35-150)
== END ==
PROVIDERS: Family Provider Family Medicine; PCP Family Medicine; Visit Provider Family Medicine
DX: Z51.81 Encounter for therapeutic drug level monitoring (principal)
CPT/HCPCS: 36415; 80061

== ENCOUNTER → 2018-06-12 15:45 | Outpatient (CLI) | payer OTHER, SELFPAY ==
[2018-06-12 16:47] LABS: Amylase 259 U/L (30-110); Lipase 1456 U/L (23-300)
== END ==
PROVIDERS: PCP Family Medicine; Visit Provider Family Medicine
DX: R74.8 Abnormal levels of other serum enzymes (principal)
CPT/HCPCS: 36415; 82150; 83690

== ENCOUNTER → 2018-07-15 15:28 | Outpatient (CLI) | payer OTHER, SELFPAY ==
[2018-07-15 16:11] LABS: Alanine Aminotransferase 21 IU/L (9-52); Albumin 4.6 g/dL (3.5-5.0); Albumin Globulin Ratio 1.6 (1.0-2.8); Alkaline Phosphatase 42 U/L (38-126); Amylase 170 U/L (30-110); Aspartate Aminotransferase 24 IU/L (14-36); BUN Creatinine Ratio 22.9 (6-22); Bilirubin Total 0.2 mg/dL (0.2-1.3); Blood Urea Nitrogen 16 mg/dL (7-17); Calcium 9.8 mg/dL (8.4-10.2); Carbon Dioxide 29 mmol/L (22-32); Chloride 103 mmol/L (98-107); Estimated Glomerular Filt Rate > 60.0 mL/min (>60); Globulin 2.8 g/dL (1.7-4.1); Glucose 107 mg/dL (80-110); HEMOLYSIS < 15 (0-50); Lipase 823 U/L (23-300); Potassium 4.6 mmol/L (3.4-5.1); Sodium 142 mmol/L (137-145); Total Protein 7.4 g/dL (6.3-8.2)
[2018-07-15 16:20] LABS: Add Manual Diff / Slide Review NO; Basophils Percent Auto 0.7 % (0-2); Eosinophils Percent Auto 5.2 % (2-4); Hematocrit 38.7 % (36-46); Hemoglobin 12.8 g/dL (12.0-16.0); Lymphocytes Percent Auto 32.5 % (25-40); Mean Corpuscular HGB Conc 33.2 % (30-36); Mean Corpuscular Hemoglobin 31.8 PG (26-34); Mean Corpuscular Volume 95.7 fL (80-100); Monocytes Percent Auto 11.7 % (3-14); Neutrophils Absolute Auto 2800 /uL (1500-7000); Neutrophils Percent Auto 49.9 % (50-75); Platelet Count 275 X10^3/uL (150-400); Red Blood Cell Count 4.04 X10^6/uL (4.0-5.2); Red Cell Distribution Width 13.2 % (11.6-14.8); White Blood Cell Count 5.5 X10^3/uL (4.5-11.0)
== END ==
PROVIDERS: Family Provider Family Medicine; PCP Family Medicine; Visit Provider Family Medicine
DX: K85.90 Acute pancreatitis without necrosis or infection, unspecified (principal); R10.13 Epigastric pain
CPT/HCPCS: 36415; 80053; 82150; 83690; 85025

== ENCOUNTER → 2018-08-21 15:31 | Outpatient (CLI) | payer OTHER, SELFPAY ==
[2018-08-21 16:08] LABS: Add Manual Diff / Slide Review NO; Basophils Absolute Auto 0 /uL (0-100); Basophils Percent Auto 0.9 % (0-2); Eosinophils Absolute Auto 300 /uL (0-450); Eosinophils Percent Auto 5.7 % (2-4); Hematocrit 40.3 % (36-46); Hemoglobin 13.5 g/dL (12.0-16.0); Lymphocytes Absolute Auto 1900 /uL (1100-4500); Lymphocytes Percent Auto 34.4 % (25-40); Mean Corpuscular HGB Conc 33.5 % (30-36); Mean Corpuscular Hemoglobin 31.2 PG (26-34); Mean Corpuscular Volume 93.3 fL (80-100); Monocytes Absolute Auto 500 /uL (0-900); Monocytes Percent Auto 8.6 % (3-14); Neutrophils Absolute Auto 2800 /uL (1500-7000); Neutrophils Percent Auto 50.4 % (50-75); Platelet Count 304 X10^3/uL (150-400); Red Blood Cell Count 4.32 X10^6/uL (4.0-5.2); Red Cell Distribution Width 13.1 % (11.6-14.8); White Blood Cell Count 5.5 X10^3/uL (4.5-11.0)
[2018-08-21 16:19] LABS: Alanine Aminotransferase 24 IU/L (9-52); Albumin 4.8 g/dL (3.5-5.0); Albumin Globulin Ratio 1.8 (1.0-2.8); Alkaline Phosphatase 49 U/L (38-126); Aspartate Aminotransferase 28 IU/L (14-36); BUN Creatinine Ratio 23.8 (6-22); Bilirubin Total 0.5 mg/dL (0.2-1.3); Blood Urea Nitrogen 19 mg/dL (7-17); Calcium 9.8 mg/dL (8.4-10.2); Carbon Dioxide 22 mmol/L (22-32); Chloride 103 mmol/L (98-107); Estimated Glomerular Filt Rate > 60.0 mL/min (>60); Globulin 2.7 g/dL (1.7-4.1); Glucose 130 mg/dL (80-110); HEMOLYSIS < 15 (0-50); Potassium 4.3 mmol/L (3.4-5.1); Sodium 139 mmol/L (137-145); Total Protein 7.5 g/dL (6.3-8.2)
== END ==
PROVIDERS: PCP Family Medicine; Visit Provider Internal Medicine Gastroenterology
DX: K86.1 Other chronic pancreatitis (principal)
CPT/HCPCS: 36415; 80053; 82787; 85025

== ENCOUNTER → 2019-05-27 15:56 | Outpatient (CLI) | payer OTHER, SELFPAY ==
[2019-05-27 16:13] LABS: Bacteria Urine None Seen
[2019-05-27 16:15] LABS: Add Manual Diff / Slide Review NO; Basophils Absolute Auto 0 /uL (0-100); Basophils Percent Auto 0.8 % (0-2); Eosinophils Absolute Auto 600 /uL (0-450); Eosinophils Percent Auto 10.5 % (2-4); Hematocrit 40.3 % (36-46); Hemoglobin 13.5 g/dL (12.0-16.0); Lymphocytes Absolute Auto 1300 /uL (1100-4500); Lymphocytes Percent Auto 24.8 % (25-40); Mean Corpuscular HGB Conc 33.5 % (30-36); Mean Corpuscular Hemoglobin 32.3 PG (26-34); Mean Corpuscular Volume 96.4 fL (80-100); Monocytes Absolute Auto 800 /uL (0-900); Monocytes Percent Auto 14.6 % (3-14); Neutrophils Absolute Auto 2600 /uL (1500-7000); Neutrophils Percent Auto 49.3 % (50-75); Platelet Count 281 X10^3/uL (150-400); Red Blood Cell Count 4.18 X10^6/uL (4.0-5.2); Red Cell Distribution Width 13.9 % (11.6-14.8); White Blood Cell Count 5.3 X10^3/uL (4.5-11.0)
[2019-05-27 16:35] LABS: Monotest Negative (Negative)
[2019-05-27 16:36] LABS: Appearance Urine UA CLEAR; Bilirubin Urine UA NEGATIVE (NEGATIVE); Color Urine UA YELLOW; Glucose Urine UA NEGATIVE (Negative); Ketones Urine UA NEGATIVE (NEGATIVE); Leukocyte Esterase Urine UA NEGATIVE (NEGATIVE); Nitrite Urine UA NEGATIVE (Negative); Occult Blood Urine UA 3+ (Negative); Protein Urine UA NEGATIVE (Negative); Specific Gravity Urine UA <=1.005 (1.000-1.035); Urobilinogen Urine UA 0.2 E.U./dL (0.2)
[2019-05-27 16:41] LABS: pH Urine UA 6.5 (4.5-8.0)
[2019-05-27 16:44] LABS: Calcium Oxalate Crystals Urine Few; RBC Urine 10-30/HPF (0-5/HPF); Squamous Epithelial Cell Urine 0-1 /HPF (0-5/HPF); WBC Urine 0-1/HPF (0-5/HPF)
[2019-05-27 16:45] LABS: Amorphous Sediment Urine 1+; Other Crystals Urine TALC
[2019-05-27 16:46] LABS: Culture Indicated Urine Cult Not Indicated
[2019-05-27 17:07] LABS: BUN Creatinine Ratio 38.8 (6-22); Blood Urea Nitrogen 31 mg/dL (7-17); Carbon Dioxide 29 mmol/L (22-32); Chloride 102 mmol/L (98-107); Estimated Glomerular Filt Rate > 60.0 mL/min (>60); Glucose 96 mg/dL (80-110); HEMOLYSIS < 15 (0-50); Lipase 118 U/L (23-300); Potassium 4.6 mmol/L (3.4-5.1); Sodium 138 mmol/L (137-145)
[2019-05-27 17:37] LABS: TSH w/ Reflex to FT4 2.84 uIU/mL (0.47-4.68)
== END ==
PROVIDERS: PCP Family Medicine; Visit Provider Physician Assistant
DX: B34.9 Viral infection, unspecified (principal)
CPT/HCPCS: 80048; 81001; 83690; 84443; 85025; 86318

== ENCOUNTER → 2022-02-04 11:37 | Outpatient (CLI) | payer MEDICARE, SELFPAY | PROVIDERS: PCP Family Medicine; Visit Provider Nurse Practitioner Family | DX: N34.3 Urethral syndrome, unspecified (principal) | CPT/HCPCS: 87086 ==

== ENCOUNTER → 2022-09-24 16:29 | Outpatient (CLI) | payer MEDICARE, SELFPAY ==
--- NOTE | 2022-09-24 | DI.MRI.S_ITS ---
PROCEDURE: MR KNEE RT WO CON INDICATIONS: right knee pain TECHNIQUE: Noncontrast sagittal PD fast spin echo and T2 fast spin echo with fat saturation, sagittal 3-D FLASH with fat saturation; coronal T1 spin echo and PD fast spin echo with fat saturation, and axial PD fast spin echo with fat saturation through the knee. COMPARISON: [facility] [place], CR, XR KNEE 4+ VIEWS RIGHT, 05/17/2022, 16:08. FINDINGS: Image quality: Excellent. Menisci: Subtle oblique tear involving posterior horn of medial meniscus is seen extending to inferior articulating surface. There is no focal lateral meniscal tear. The meniscal root ligaments appear intact. Cruciate ligaments: Patient is status post ACL reconstruction with intact ACL graft. The posterior cruciate ligament is intact. Medial structures: The medial collateral ligament appears intact. The posterior oblique ligament, semimembranosus tendon insertions, oblique popliteal ligament, and meniscocapsular junction appear intact. Visualized portions of the pes anserinus tendons appear normal. No abnormal bursal fluid. Lateral structures: The lateral collateral ligament, long and short heads of the biceps femoris tendon appear intact. The popliteus tendon appears normal; the popliteofibular ligament appears intact. Iliotibial band appears normal. Anterior structures: The quadriceps and patellar tendons appear intact. Patellar alignment is normal. No femoral trochlear dysplasia or ventral trochlear prominence. No edema in the infrapatellar fat pad. Bones and cartilage: [id number] tricompartmental osteoarthritis and chondromalacia is seen more notably in patellofemoral compartment with moderate to high-grade chondromalacia involving apex of patella cartilage and underlying osteochondral injury with surrounding edema. No fracture or dislocation. No signal abnormality is seen in tarsal tunnel and tibial tunnel. No abnormal anterior tibial translation. Joint space: There is small knee joint fluid. No Shepherd's cyst. Normal appearing synovial plicae are incidentally noted. IMPRESSION: 1. Prior ACL repair with intact ACL graft. The PCL is intact. 2. Subtle oblique tear involving posterior horn of medial meniscus extending to inferior articulating surface. No evidence of focal lateral meniscal tear. 3. Mild to moderate tricompartmental osteoarthritis and chondromalacia most notably in patellofemoral compartment as above. No fracture or dislocation. Small joint effusion, no gross loose bodies. Dictated by: Asher Live M.D. on 09/24/2022 at 17:55 Approved by: Asher Live M.D. on 09/24/2022 at 17:58
== END ==
PROVIDERS: PCP Family Medicine; Referring Provider Orthopaedic Surgery; Visit Provider Orthopaedic Surgery
DX: S83.241A Other tear of medial meniscus, current injury, right knee, initial encounter (principal); M17.11 Unilateral primary osteoarthritis, right knee; M22.41 Chondromalacia patellae, right knee; M25.461 Effusion, right knee
CPT/HCPCS: 73721

== ENCOUNTER → 2023-12-22 12:36 | Outpatient (CLI) | payer MEDICARE, SELFPAY ==
--- NOTE | 2023-12-22 14:00 | DI.MRI.S_ITS ---
PROCEDURE: MR KNEE RT WO CON INDICATIONS: Unilateral primary osteoarthritis, right knee TECHNIQUE: Noncontrast sagittal PD fast spin echo and T2 fast spin echo with fat saturation, sagittal 3-D FLASH with fat saturation; coronal T1 spin echo and PD fast spin echo with fat saturation, and axial PD fast spin echo with fat saturation through the knee. COMPARISON: [facility], MR, MR KNEE RT WO CON, 09/24/2022, 16:50. FINDINGS: Image quality: Excellent. Menisci: In the medial meniscus, there is mild inner margin blunting of the posterior horn. No extrusion of the medial meniscus body. The lateral meniscus is unremarkable. Cruciate ligaments: Status post ACL reconstruction. Intact ACL graft. No arthrofibrosis. The PCL is intact. Medial structures: The medial collateral ligament appears intact. The posterior oblique ligament, semimembranosus tendon insertions, oblique popliteal ligament, and meniscocapsular junction appear intact. Visualized portions of the pes anserinus tendons appear normal. No abnormal bursal fluid. Lateral structures: The lateral collateral ligament, long and short heads of the biceps femoris tendon appear intact. The popliteus tendon appears normal; the popliteofibular ligament appears intact. The posterosuperior and anteroinferior popliteomeniscal fascicles appear intact. The arcuate and fabellofibular ligaments appear intact, on either side of the lateral inferior geniculate artery. Iliotibial band appears normal. Anterior structures: The quadriceps and patellar tendons appear intact. Patellar alignment is normal. No femoral trochlear dysplasia or ventral trochlear prominence. No edema in the infrapatellar fat pad. Bones and cartilage: There is high-grade chondral loss in the median ridge of the patella, with mild subchondral marrow edema. There is small area of full-thickness chondral loss in the central trochlea. In the medial compartment, and there is full thickness chondral loss in the weight-bearing portion of the femoral condyle. There is additional mild chondral loss in the nonweightbearing portion of the femoral condyle. In the lateral compartment, there is multi focal high-grade chondral loss of the femoral condyle with moderate size full thickness chondral loss in the posterior weight-bearing portion of the femoral condyle, with mild subchondral marrow edema. There is subchondral cystic changes with mild marrow edema about the tibial eminence, reactive. No acute fracture. Joint space: Small knee effusion. No popliteal cyst. No intra-articular bodies. IMPRESSION: 1. Mild inner margin blunting of the posterior horn of the medial meniscus. 2. Status post ACL reconstruction with intact ACL graft. 3. Moderate tricompartmental chondrosis, unchanged from prior exam. Dictated by: Velia Liao M.D. on 12/22/2023 at 15:29 Approved by: Velia Liao M.D. on 12/22/2023 at 15:40
== END ==
PROVIDERS: PCP Family Medicine; Referring Provider Orthopaedic Surgery Adult Reconstructive Orthopaedic Surgery; Visit Provider Orthopaedic Surgery Adult Reconstructive Orthopaedic Surgery
DX: M17.11 Unilateral primary osteoarthritis, right knee (principal); M94.261 Chondromalacia, right knee
CPT/HCPCS: 73721

== ENCOUNTER 2024-11-19 02:56 | Emergency (ER) | payer MEDICARE, SELFPAY ==
[2024-11-19 02:58] VITALS: BP 107/61; PULSE 72; RESP 16; TEMP 35.9; O2SAT 95; BMI 27.4
[2024-11-19 02:59] VITALS: PULSE 76; RESP 15; O2SAT 96
--- NOTE | 2024-11-19 03:02 | DI.RAD.S_ITS ---
PROCEDURE: XR CHEST 1V INDICATIONS: pre syncope TECHNIQUE: One view of the chest was acquired. COMPARISON: None. FINDINGS AND IMPRESSION: No dense airspace disease or pleural effusions. Normal heart size. Degenerative osseous changes. No significant discrepancy from the preliminary report. Dictated by: Antonio Peraza M.D. on 11/19/2024 at 8:00 Approved by: Antonio Peraza M.D. on 11/19/2024 at 8:01
--- NOTE | 2024-11-19 03:02 | ED_ITS ---
HPI - Syncope General Chief Complaint: Syncope Stated Complaint: syncope Time Seen by Provider: 11/19/24 03:02 History of Present Illness HPI narrative: 69-year-old female no pertinent past medical history presenting from home via EMS for evaluation of presyncopal event, she states that she woke up fine until he has the restroom started feeling lightheaded, she states that she was able to make it to the restroom states that she sat on the toilet put her head between her legs did feel better but states that every time she tried to move symptoms persisted therefore EMS was called. According to EMS patient was orthostatic at time of evaluation, did receive a proximally 400 cc of normal saline prior to arrival, patient with a map of 72 at time of evaluation, she states that she just feels a little ?tired but currently denies any headache visual disturbances chest pain shortness breath fever chills abdominal pain or any other GI/ symptoms time. States mild nausea but no vomiting. Not on any blood thinners denies any actual fall Related Data Home Medications Medication Instructions Recorded Confirmed cholecalciferol (vitamin D3) 250 10,000 unit PO ##0 05/10/16 09/15/23 mcg (10,000 unit) tablet Previous Rx's Medication Instructions Recorded pimecrolimus 1 % topical cream 1 applic topical BID #60 grams 07/18/21 (Elidel) duloxetine 60 mg capsule,delayed 60 mg PO QAM #90 caps 09/15/23 release Allergies Allergy/AdvReac Type Severity Reaction Status Date / Time Opioids - Morphine Analogues Allergy Severe Migraines Verified 09/15/23 16:44 grass pollen [GRASS POLLEN] Allergy Intermediate hayfever Verified 09/15/23 16:44 mold [MOLD] Allergy Intermediate hayfever Verified 09/15/23 16:44 fentanyl Allergy Mild Nausea Verified 09/15/23 16:44 hydrocodone [From Vicodin] AdvReac Verified 09/15/23 16:44 sheelfish Allergy Severe anaphalaxis Uncoded 09/15/23 16:44 dust Allergy Intermediate hayfever Uncoded 09/15/23 16:44 weeds Allergy Intermediate hayfever Uncoded 09/15/23 16:44 Review of Systems Review of Systems Narrative: General: Denies fever, chills, weight loss HEENT: Denies headache, eye drainage, eye irritation, head trauma, sore throat, voice change Cardiovascular: Denies any chest pain, palpitations, tachycardia Respiratory: Denies any shortness of breath, cough, wheeze, stridor GI/: Denies any abdominal pain, nausea, vomiting, diarrhea, bright red blood per rectum, melanotic stools, urinary frequency, urinary retention, dysuria, hematuria MSK: Denies any joint pain, muscle pains, swelling Skin: Denies any rashes, lesions, discoloration Neuro: Positive presyncope Denies any headache, weakness Psych: Denies SI/HI Patient History Medical History Preventative health care Dermatitis (Unknown) Hiatal hernia (~02/2017) Depression (Unknown) GERD without esophagitis Duodenal ulcer Hypnic headache Costochondritis Surgical History Hx of eye surgery (195) Hx of knee surgery (2004) Family History Father Cancer Mother Cancer Sister Cancer Social History Smoking Status: Never smoker alcohol intake: never alcohol intake frequency: 0-2 drinks per day Exam Narrative Exam Narrative: General: Cooperative, well-developed, not in acute distress HEENT: Normocephalic, atraumatic, PERRLA, normal sclera, eyelids normal Neck: Active full range of motion, atraumatic Chest: Normal to inspection, negative crepitus, no overlying erythema ecchymosis Respiratory: Normal respiratory effort, not in acute respiratory distress, clear to auscultation bilaterally negative cough, wheeze, tachypnea, rhonchi, rales Cardiology: Regular rate rhythm negative gallop, murmur, rubs GI/: No tenderness to palpation, soft, non rigid, normal to inspection, exam deferred MSK: Full active range of motion in all 4 extremities, atraumatic, no tenderness to palpation of any bony prominences Skin: No rashes or lesions noted Neuro: NIH of 0, no focal deficits, Alert awake oriented x3, moves all 4 extremities spontaneously, cranial nerves intact, able to answer all questions appropriately follows commands appropriately Psych: Cooperative, negative suicidal or homicidal ideations Initial Vital Signs Initial Vital Signs: Vital Signs Temperature 96.7 F L 11/19/24 02:58 Pulse Rate 72 11/19/24 02:58 Respiratory Rate 16 11/19/24 02:58 Blood Pressure 107/61 11/19/24 02:58 Pulse Oximetry 95 11/19/24 02:58 Oxygen Delivery Method Room Air 11/19/24 02:58 Course Orders Ordered: ED Orders 11/19/24 02:50 Complete Blood Count AUTO DIFF Stat Comprehensive Metabolic Panel Stat Lipase Stat MAG [Magnesium] Stat Troponin & CK Cardiac Panel Stat 11/19/24 03:02 XR chest 1V Stat EKG-12 Lead Stat Discontinued Medications Sodium Chloride (Normal Saline 0.9%) 1,000 mls @ 1,000 mls/hr IV BOLUS ONE Stop: 11/19/24 04:01 Last Admin: 11/19/24 03:10 Dose: 1,000 mls/hr Documented By: DEBBY Ondansetron HCl (Ondansetron 4 Mg/2 Ml Inj) 4 mg IV NOW ONE Stop: 11/19/24 03:03 Vital Signs Vital signs: Vital Signs - 8 hr 11/19/24 02:58 11/19/24 02:59 11/19/24 03:30 Temperature 96.7 F L Pulse Rate 72 76 69 Respiratory Rate 16 15 14 Blood Pressure 107/61 Pulse Oximetry 95 96 93 Oxygen Delivery Method Room Air MDM - Syncope Differential Diagnosis Differential diagnosis: Likely syncope due to orthostatic hypotension, vasovagal syncope, complete atrioventricular block, dehydration and other (ACS, pneumonia, electrolyte abnormality) Lab Data 11/19/24 02:50 11/19/24 02:50 Labs: Lab Results 11/19/24 Range/Units 02:50 WBC 5.2 (4.5-11.0) X10^3/uL RBC 3.86 L (4.0-5.2) X10^6/uL Hgb 12.6 (12.0-16.0) g/dL Hct 36.7 (36-46) % MCV 94.9 (80-100) fL MCH 32.6 (26-34) PG MCHC 34.3 (30-36) % RDW 13.2 (11.6-14.8) % Plt Count 308 (150-400) X10^3/uL Neut % (Auto) 43.6 L (50-75) % Lymph % (Auto) 41.2 H (25-40) % [place] % (Auto) 8.0 (3-14) % Eos % (Auto) 5.9 H (2-4) % Baso % (Auto) 1.3 (0-2) % Neut # (Auto) 2300 (4021-0739) /uL Lymph # (Auto) 2100 (9205-5692) /uL [place] # (Auto) 400 (0-900) /uL Eos # (Auto) 300 (0-450) /uL Baso # (Auto) 100 (0-100) /uL Sodium 135 L (137-145) mmol/L Potassium 3.8 (3.4-5.1) mmol/L Chloride 105 (98-107) mmol/L Carbon Dioxide 23 (22-32) mmol/L BUN 30 H (7-17) mg/dL Creatinine 0.98 (0.52-1.04) mg/dL Estimated GFR > 60 (>60) mL/min BUN/Creatinine Ratio 30.6 H (6-22) Glucose 137 H (70-99) mg/dL Calcium 9.7 (8.4-10.2) mg/dL Magnesium 1.9 (1.6-2.3) mg/dL Total Bilirubin 0.6 (0.2-1.3) mg/dL AST 31 (14-36) IU/L ALT 26 (<35) IU/L Alkaline Phosphatase 50 (38-126) U/L Total Creatine Kinase 49 (30-135) U/L Troponin I < 0.012 (0.01-0.034) ng/mL Total Protein 6.7 (6.3-8.2) g/dL Albumin 4.2 (3.5-5.0) g/dL Globulin 2.5 (1.7-4.1) g/dL Albumin/Globulin Ratio 1.7 (1.0-2.8) Lipase 95 (23-300) U/L Imaging Data Chest x-ray: Radiologist's Impression: Preliminary read showing no acute cardiopulmonary abnormality ECG Data Interpretation: EKG interpreted by ED physician sinus at 70 beats per minute QTC 432 normal axis no STEMI MDM Narrative Medical decision making narrative: 69-year-old female no pertinent past medical history presenting from home via EMS for evaluation of presyncope, states that she woke up to use the restroom as she was walking states she felt lightheaded/dizzy, states that she had a sit down on the toilet put her head in between her legs with improvement in symptoms but states that as she kept trying to stand up she had persistent symptoms denies any actual syncope according to medics who arrived patient was orthostatic was given 400 cc fluids prior to arrival at time of evaluation patient with a map of 72 just stating she feels a little tired/week, NIH of 0, patient had lab work imaging EKG performed here in the emergency department, Jackson syncope score -2. EKG was nonischemic in nature lab work unremarkable troponin negative. Symptoms more likely secondary to orthostatic hypotension versus vasovagal syncope patient was given strict return precautions she verbalized understanding of this and agrees to being discharged home with outpatient follow up Discharge Plan Departure Patient Disposition: Home Clinical Impression: Syncope Activity Restrictions/Additional Instructions: Please follow up with primary care Please read the discharge instructions sheet carefully and bring all papers to all doctor follow-up visits, as it may contain information that your doctor may want to see. Disease processes change and evolve, if your symptoms worsen or if you develop any new symptoms that are concerning to you please return for evaluation. Your evaluation today does not show any evidence of any life- threatening/serious illnesses requiring admission to the hospital or surgery. Please follow-up with your doctor for re-evaluation in approximately 1 day. Seek immediate medical attention for any worrisome symptoms. *If you do not have a primary care provider please contact the [facility] Resource line at [phone]. They will ask some questions about your medical history and help get you set up with a doctor in the community. Prescriptions: No Action cholecalciferol (vitamin D3) 10,000 UNIT tablet 10,000 unit PO Qty: 0 duloxetine 60 mg capsule,delayed release(DR/EC) 60 mg PO QAM Qty: 90 3RF pimecrolimus [Elidel] 1 % cream 1 applic topical BID Qty: 60 1RF Referrals: Adrián Jones DO [Primary Care Provider] - Stand Alone Forms: Patient Portal/API/Survey
--- NOTE | 2024-11-19 03:09 | EKG_ITS ---
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
[2024-11-19] MEDS: SODIUM CHLORIDE 0.9% 1,000 ML 1000 ML IV (03:10)
[2024-11-19 03:12] LABS: Add Manual Diff / Slide Review NO; Basophils Absolute Auto 100 /uL (0-100); Basophils Percent Auto 1.3 % (0-2); Eosinophils Absolute Auto 300 /uL (0-450); Eosinophils Percent Auto 5.9 % (2-4); Hematocrit 36.7 % (36-46); Hemoglobin 12.6 g/dL (12.0-16.0); Lymphocytes Absolute Auto 2100 /uL (1100-4500); Lymphocytes Percent Auto 41.2 % (25-40); Mean Corpuscular HGB Conc 34.3 % (30-36); Mean Corpuscular Hemoglobin 32.6 PG (26-34); Mean Corpuscular Volume 94.9 fL (80-100); Monocytes Absolute Auto 400 /uL (0-900); Neutrophils Absolute Auto 2300 /uL (1500-7000); Neutrophils Percent Auto 43.6 % (50-75); Platelet Count 308 X10^3/uL (150-400); Red Blood Cell Count 3.86 X10^6/uL (4.0-5.2); Red Cell Distribution Width 13.2 % (11.6-14.8); White Blood Cell Count 5.2 X10^3/uL (4.5-11.0)
--- NOTE | 2024-11-19 03:16 | PC.NURSE ---
Pt requesting to not be given Zofran at this time.
[2024-11-19 03:17] LABS: Alanine Aminotransferase 26 IU/L (<35); Albumin 4.2 g/dL (3.5-5.0); Albumin Globulin Ratio 1.7 (1.0-2.8); Alkaline Phosphatase 50 U/L (38-126); Aspartate Aminotransferase 31 IU/L (14-36); BUN Creatinine Ratio 30.6 (6-22); Bilirubin Total 0.6 mg/dL (0.2-1.3); Blood Urea Nitrogen 30 mg/dL (7-17); Calcium 9.7 mg/dL (8.4-10.2); Carbon Dioxide 23 mmol/L (22-32); Chloride 105 mmol/L (98-107); Creatine Kinase 49 U/L (30-135); Estimated Glomerular Filt Rate > 60 mL/min (>60); Globulin 2.5 g/dL (1.7-4.1); Glucose 137 mg/dL (70-99); HEMOLYSIS < 15 (0-50); Lipase 95 U/L (23-300); Potassium 3.8 mmol/L (3.4-5.1); Sodium 135 mmol/L (137-145); Total Protein 6.7 g/dL (6.3-8.2)
[2024-11-19 03:18] LABS: Magnesium 1.9 mg/dL (1.6-2.3)
[2024-11-19 03:29] LABS: Troponin I < 0.012 ng/mL (0.01-0.034)
[2024-11-19 03:30] VITALS: PULSE 69; RESP 14; O2SAT 93
[2024-11-19 04:00] VITALS: PULSE 73; RESP 15; O2SAT 94
[2024-11-19 04:23] VITALS: BP 95/52; PULSE 71; RESP 14; O2SAT 95
--- NOTE | 2024-11-19 04:28 | PC.NURSE ---
Pt ambulatory to restroom with 1 person stand by without difficulty or assistance
== END 2024-11-19 04:40 | disposition home or self-care (01) ==
PROVIDERS: Emergency Provider Student in an Organized Health Care Education/Training Program; PCP Family Medicine
DX: R55 Syncope and collapse (principal)
CPT/HCPCS: 36415; 71045; 80053; 82550; 83690; 83735; 84484; 85025; 93005; 96360; 99284

== ENCOUNTER 2024-12-27 23:52 | Emergency (ER) | payer MEDICARE, SELFPAY ==
[2024-12-28] VITALS (11 sets, daily range): BP systolic 108–140; BP diastolic 57–69; PULSE 83–121; RESP 19–36; TEMP 37.3; O2SAT 93–98; BMI 27.4
--- NOTE | 2024-12-28 00:05 | DI.CT.S_ITS ---
PROCEDURE: CT STROKE INDICATIONS: Positive BE-FAST, Stroke symptoms TECHNIQUE: Noncontrast 4.5 mm thick angled axial sections acquired from the foramen magnum to the vertex, with coronal reformats. For radiation dose reduction, the following was used: automated exposure control, adjustment of mA and/or kV according to patient size. COMPARISON: [facility], CT, CT ANGIO HEAD AND NECK, 12/28/2024, 0:08. FINDINGS: Image quality: Diagnostic. CSF spaces: Basal cisterns are patent. No extra-axial fluid collections. The ventricles are symmetric in size and shape. Brain: No intracranial bleeds or mass effect. There is cerebral volume loss, with resultant ventricular and sulcal prominence. There are periventricular and deep white matter chronic small vessel ischemic changes. There is intracranial internal carotid artery atherosclerosis. Skull and face: Calvarium and visualized facial bones appear intact, without suspicious lesions. Sinuses: Visualized sinuses and mastoids are clear. IMPRESSION: 1. No acute intracranial process. 2. Moderate atrophy and chronic microvascular ischemic changes. The above findings were discussed with Dr. Jas Arrieta on 12/28/2024 at 12:33 a.m. This study fulfills neurological imaging criteria for inclusion or exclusion of acute stroke therapies based on available published neurological guidelines. Dictated by: Isabella Daniel M.D. on 12/28/2024 at 0:33 Approved by: Isabella Daniel M.D. on 12/28/2024 at 0:35
--- NOTE | 2024-12-28 00:05 | DI.CT.S_ITS ---
PROCEDURE: CT ANGIO HEAD AND NECK INDICATIONS: r/o stroke TECHNIQUE: After the administration of intravenous contrast, 1 mm thick sections acquired from the aortic arch through the [place]. 3-dimensional vneuihl-axnpuqeuc-beyromowtp (MIP) and/or volume rendering reformats were acquired of the central intracranial vasculature and neck separately. For radiation dose reduction, the following was used: automated exposure control, adjustment of mA and/or kV according to patient size. COMPARISON: CT, CT HEAD/BRAIN WO CON, 12/27/2017, 20:55. [facility], CT, CT STROKE, 12/28/2024, 0:08. FINDINGS: Image quality: Diagnostic. Cerebral CT Angiogram: Internal carotid arteries: No acute findings. Intracranial ICA are patent with no significant stenosis. No occlusion. No aneurysm. Anterior cerebral arteries: Unremarkable. No significant stenosis. No occlusion. No aneurysm. Middle cerebral arteries: Unremarkable. No significant stenosis. No occlusion. No aneurysm. Posterior cerebral arteries: Unremarkable. No significant stenosis. No occlusion. No aneurysm. Basilar artery: Unremarkable. No significant stenosis. No occlusion. No aneurysm. Vertebral arteries: Unremarkable as visualized. Vertebral arteries are codominant. Dural venous sinuses: Unremarkable given phase of enhancement. Other: Arterial phase appearance of the brain parenchyma is unremarkable. Neck CT Angiogram: Internal carotid arteries: Unremarkable. No significant stenosis. No dissection or occlusion. Common carotid arteries: Unremarkable. No significant stenosis. No dissection or occlusion. External carotid arteries: Unremarkable. No occlusion. Vertebral arteries: Unremarkable. No significant stenosis. No dissection or occlusion. Aortic Arch and Mediastinum: Partially visualized aortic arch unremarkable without evidence of aneurysm. Origins of the great vessels unremarkable. Other: Arterial phase soft tissues of the neck and chest are unremarkable. IMPRESSION: No significant intracranial arterial abnormality is seen. No significant abnormality is seen within the arteries of the neck. Any quantitative measurements of stenosis were performed using NASCET criteria. Dictated by: Isabella Daniel M.D. on 12/28/2024 at 0:35 Approved by: Isabella Daniel M.D. on 12/28/2024 at 0:36
--- NOTE | 2024-12-28 00:05 | DI.RAD.S_ITS ---
PROCEDURE: XR CHEST 1V INDICATIONS: Possible stroke TECHNIQUE: One view of the chest was acquired. COMPARISON: [facility], CR, XR CHEST 1V, 11/19/2024, 2:59. FINDINGS: Surgical changes and devices: None. Lungs and pleura: Lungs are clear. No pleural effusions or pneumothorax. Mediastinum: Mediastinal contours appear normal. Heart size is normal. Bones and chest wall: No suspicious bony lesions. Overlying soft tissues appear unremarkable. IMPRESSION: No acute pulmonary process. Dictated by: Isabella Daniel M.D. on 12/28/2024 at 0:41 Approved by: Isabella Daniel M.D. on 12/28/2024 at 0:41
--- NOTE | 2024-12-28 00:05 | EKG_ITS ---
[address] [address] Test Date: 2024-12-28 Pat Name: Tiffanie Lee Department: Room: Gender: Female Mails Supervisor: JASMIN MCCLURE : 1955 Requested By: Order Number: [id number] Reading MD: Shemar Ch MD Measurements Intervals [place] Rate: 106 P: 57 AL: 160 QRS: 21 QRSD: 82 T: 42 QT: 334 QTc: 443 Interpretive Statements Sinus tachycardia Possible Left atrial enlargement Electronically Signed On 12-28-2024 7:27:18 PDT by Shemar Ch MD
[2024-12-28 00:24] LABS: Add Manual Diff / Slide Review NO; Basophils Absolute Auto 0 /uL (0-100); Basophils Percent Auto 0.4 % (0-2); Eosinophils Absolute Auto 200 /uL (0-450); Eosinophils Percent Auto 2.6 % (2-4); Hematocrit 38.8 % (36-46); Hemoglobin 13.2 g/dL (12.0-16.0); Lymphocytes Absolute Auto 2200 /uL (1100-4500); Lymphocytes Percent Auto 24.7 % (25-40); Mean Corpuscular HGB Conc 34.1 % (30-36); Mean Corpuscular Hemoglobin 32.4 PG (26-34); Mean Corpuscular Volume 95.2 fL (80-100); Monocytes Absolute Auto 900 /uL (0-900); Monocytes Percent Auto 9.8 % (3-14); Neutrophils Absolute Auto 5500 /uL (1500-7000); Neutrophils Percent Auto 62.5 % (50-75); Platelet Count 311 X10^3/uL (150-400); Red Blood Cell Count 4.08 X10^6/uL (4.0-5.2); Red Cell Distribution Width 13.2 % (11.6-14.8); White Blood Cell Count 8.8 X10^3/uL (4.5-11.0)
[2024-12-28 00:27] LABS: INR 0.9 (0.9-1.3); Prothrombin Time 10.1 SECONDS (9.4-12.5)
[2024-12-28 00:30] LABS: PTT Partial Thromboplastin Tim 35 SECONDS (25.1-36.5)
[2024-12-28 00:32] LABS: Alanine Aminotransferase 33 IU/L (<35); Albumin 4.6 g/dL (3.5-5.0); Albumin Globulin Ratio 1.6 (1.0-2.8); Alkaline Phosphatase 54 U/L (38-126); Aspartate Aminotransferase 37 IU/L (14-36); BUN Creatinine Ratio 28.6 (6-22); Bilirubin Total 0.4 mg/dL (0.2-1.3); Blood Urea Nitrogen 22 mg/dL (7-17); Calcium 9.6 mg/dL (8.4-10.2); Carbon Dioxide 24 mmol/L (22-32); Chloride 102 mmol/L (98-107); Creatine Kinase 70 U/L (30-135); Estimated Glomerular Filt Rate > 60 mL/min (>60); Globulin 2.8 g/dL (1.7-4.1); Glucose 134 mg/dL (70-99); HEMOLYSIS < 15 (0-50); Potassium 3.3 mmol/L (3.4-5.1); Sodium 136 mmol/L (137-145); Total Protein 7.4 g/dL (6.3-8.2)
[2024-12-28 00:43] LABS: Troponin I < 0.012 ng/mL (0.01-0.034)
--- NOTE | 2024-12-28 00:53 | ED_ITS ---
HPI - Neuro Symptoms/Deficit General Chief Complaint: Neuro Symptoms/Deficit Stated Complaint: acute dizziness. Time Seen by Provider: 12/28/24 00:38 Source: patient and EMS Mode of arrival: EMS History of Present Illness HPI Narrative: 69-year-old female seen here last month for syncopal episode of unclear cause, possibly was related to dehydration per , was discharged home. Today had lightheadedness sensation loss sitting reading 10:30 p.m. last night. No chest pain or shortness of breath. No associated diaphoresis. No nausea or vomiting. No recent emesis or diarrhea. No black or red stools. She has not felt feverish. No prior stroke symptoms known. No focal weakness to face arm or leg. No focal numbness to face arm or leg. No spinning sensation to herself or the room. Lightheadedness dizziness symptoms not worse with body movements or isolated head movements. On Anticoagulants: No Related Data Home Medications ?Medication ?Instructions ?Recorded ?Confirmed cholecalciferol (vitamin D3) 250 10,000 unit PO ##0 09/15/23 mcg (10,000 unit) tablet Previous Rx's ?Medication ?Instructions ?Recorded pimecrolimus 1 % topical cream 1 applic topical BID #6 0 grams 07/18/21 (Elidel) duloxetine 60 mg capsule,delayed 60 mg PO QAM #90 caps 09/15/23 release Allergies Allergy/AdvReac Type Severity Reaction Status Date / Time Opioids - Morphine Analogues Allergy Severe Migraines Verified 09/15/23 16:44 grass pollen (GRASS POLLEN) Allergy Intermediate hayfever Verified 09/15/23 16:44 mold (MOLD) Allergy Intermediate hayfever Verified 09/15/23 16:44 fentanyl Allergy Mild Nausea Verified 09/15/23 16:44 hydrocodone (From Vicodin) AdvReac Verified 09/15/23 16:44 sheelfish Allergy Severe anaphalaxis Uncoded 09/15/23 16:44 dust Allergy Intermediate hayfever Uncoded 09/15/23 16:44 weeds Allergy Intermediate hayfever Uncoded 09/15/23 16:44 Review of Systems Hematologic/Lymphatic On Anticoagulants: No Patient History Medical History Preventative health care Dermatitis (Unknown) Hiatal hernia (~02/2017) Depression (Unknown) GERD without esophagitis Duodenal ulcer Hypnic headache Costochondritis Surgical History Hx of eye surgery (1956) Hx of knee surgery (2004) Family History Father Cancer Mother Cancer Sister Cancer Social History Smoking Status: Former smoker alcohol intake: never Smoking Status: Former smoker alcohol intake frequency: 0-2 drinks per day Exam Narrative Exam Narrative: GENERAL: Well-developed patient, in mild distress. HEAD: Atraumatic. Normocephalic. EYES: Pupils equal round and reactive. Extraocular motions intact. No scleral icterus. No injection or drainage. ENT: Nose without bleeding, purulent drainage. Throat without erythema, tonsillar hypertrophy or exudate. Airway patent. NECK: Trachea midline. Non tender CARDIOVASCULAR: Regular rate and rhythm without murmurs, gallops, or rubs. RESPIRATORY: Clear to auscultation. Breath sounds equal bilaterally. No wheezes, rales, or rhonchi. GASTROINTESTINAL: Abdomen soft, non-tender, nondistended. EXTREMITIES: No edema or joint tenderness. BACK: Nontender without deformity or crepitance. No flank tenderness. NEURO: AOx3. Motor functions grossly nonfocal. SKIN: No rash or erythema of visible areas Initial Vital Signs Initial Vital Signs: Vital Signs Temperature 99.1 F 12/28/24 00:04 Pulse Rate 109 H 12/28/24 00:04 Respiratory Rate 20 12/28/24 00:04 Blood Pressure 140/65 12/28/24 00:04 Pulse Oximetry 95 12/28/24 00:04 Oxygen Delivery Method Room Air 12/28/24 00:04 Course Orders Ordered: ED Orders 12/28/24 00:[address] angio head and neck Stat XR chest 1V Stat EKG-12 Lead Stat 12/28/24 00:10 Complete Blood Count AUTO DIFF Stat Comprehensive Metabolic Panel Stat PTT Partial Thromboplastin Yossi Stat Prothrombin Time INR Stat Troponin & CK Cardiac Panel Stat 12/28/24 02:04 Urine Drug Screen, Rapid Stat 12/28/24 02:30 Troponin I Stat Discontinued Medications POTASSIUM CHLORIDE IN WATER (Potassium Cl 10 Meq/100 Ml Julia) 10 meq in 100 mls @ 100 mls/hr IV Q1H LEBRON Stop: 12/28/24 02:44 Last Infusion: 12/28/24 03:24 Dose: Infused Documented By: Admin: 12/28/24 02:13 Dose: 100 mls/hr Documented By: Infusion: 12/28/24 02:00 Dose: Infused Documented By: Admin: 12/28/24 01:00 Dose: 100 mls/hr Documented By: ESTEPHANIE Sodium Chloride (Normal Saline 0.9%) 1,000 mls @ 1,000 mls/hr IV BOLUS ONE Stop: 12/28/24 02:10 Last Infusion: 12/28/24 03:25 Dose: Infused Documented By: Admin: 12/28/24 01:16 Dose: 1,000 mls/hr Documented By: ESTEPHANIE Ondansetron HCl (Ondansetron 4 Mg/2 Ml Inj) 4 mg IV NOW PRN PRN Reason: Nausea And Vomiting Ondansetron HCl (Ondansetron 4 Mg Odt) 4 mg PO NOW PRN PRN Reason: Nausea And Vomiting Potassium Chloride (Potassium Chloride 20 Meq/15 Ml Udc) 40 meq PO NOW ONE Stop: 12/28/24 01:12 Last Admin: 12/28/24 01:26 Dose: 40 meq Documented By: ESTEPHANIE Vital Signs Vital signs: Vital Signs - 8 hr 12/28/24 00:04 12/28/24 00:06 12/28/24 00:30 Temperature 99.1 F Pulse Rate 109 H 119 H 121 H Respiratory Rate 20 25 H 36 H Blood Pressure 140/65 Pulse Oximetry 95 98 98 Oxygen Delivery Method Room Air 12/28/24 00:36 12/28/24 00:36 12/28/24 01:00 Temperature Pulse Rate 109 H 115 H Respiratory Rate 20 23 Blood Pressure 133/61 Pulse Oximetry 98 93 Oxygen Delivery Method 12/28/24 01:00 12/28/24 01:30 12/28/24 01:30 Temperature Pulse Rate 115 H Respiratory Rate 22 Blood Pressure 129/61 123/59 L Pulse Oximetry 96 Oxygen Delivery Method Room Air 12/28/24 02:06 12/28/24 02:16 12/28/24 02:16 Temperature Pulse Rate 97 H 95 H Respiratory Rate 27 H 20 Blood Pressure 132/59 L Pulse Oximetry 93 96 Oxygen Delivery Method 12/28/24 02:30 12/28/24 02:30 12/28/24 03:00 Temperature Pulse Rate 91 H 89 Respiratory Rate 22 20 Blood Pressure 108/57 L Pulse Oximetry 97 Oxygen Delivery Method Room Air 12/28/24 03:00 12/28/24 03:30 Temperature Pulse Rate 83 Respiratory Rate 19 Blood Pressure 108/69 Pulse Oximetry 97 Oxygen Delivery Method Room Air MDM - Neuro Symptoms/Deficit Lab Data Attestation: I reviewed the patient's lab results. Lab results narrative: White blood cell count 8800, hemoglobin 13.2, platelets adequate. Glucose 134. Renal function normal. Serum CO2 24 normal. Sodium 136. Potassium 3.3 low. AST slight elevation, other liver functions normal. Troponin negative/unmeasurable. 12/28/24 00:10 12/28/24 00:10 Labs: Lab Results 12/28/24 12/28/24 12/28/24 Range/Units 00:10 02:04 02:30 WBC 8.8 (4.5-11.0) X10^3/uL RBC 4.08 (4.0-5.2) X10^6/uL Hgb 13.2 (12.0-16.0) g/dL Hct 38.8 (36-46) % MCV 95.2 (80-100) fL MCH 32.4 (26-34) PG MCHC 34.1 (30-36) % RDW 13.2 (11.6-14.8) % Plt Count 311 (150-400) X10^3/uL Neut % (Auto) 62.5 (50-75) % Lymph % (Auto) 24.7 L (25-40) % [place] % (Auto) 9.8 (3-14) % Eos % (Auto) 2.6 (2-4) % Baso % (Auto) 0.4 (0-2) % Neut # (Auto) 5500 (8064-1834) /uL Lymph # (Auto) 2200 (4086-3558) /uL [place] # (Auto) 900 (0-900) /uL Eos # (Auto) 200 (0-450) /uL Baso # (Auto) 0 (0-100) /uL PT 10.1 (9.4-12.5) SECONDS INR 0.9 (0.9-1.3) APTT 35 (25.1-36.5) SECONDS Sodium 136 L (137-145) mmol/L Potassium 3.3 L (3.4-5.1) mmol/L Chloride 102 (98-107) mmol/L Carbon Dioxide 24 (22-32) mmol/L BUN 22 H (7-17) mg/dL Creatinine 0.77 (0.52-1.04) mg/dL Estimated GFR > 60 (>60) mL/min BUN/Creatinine Ratio 28.6 H (6-22) Glucose 134 H (70-99) mg/dL Calcium 9.6 (8.4-10.2) mg/dL Total Bilirubin 0.4 (0.2-1.3) mg/dL AST 37 H (14-36) IU/L ALT 33 (<35) IU/L Alkaline Phosphatase 54 (38-126) U/L Total Creatine Kinase 70 (30-135) U/L Troponin I < 0.012 < 0.012 (0.01-0.034) ng/mL Total Protein 7.4 (6.3-8.2) g/dL Albumin 4.6 (3.5-5.0) g/dL Globulin 2.8 (1.7-4.1) g/dL Albumin/Globulin Ratio 1.6 (1.0-2.8) U Opiates 300ng/mL cut Negative (Negative) Ur Oxycodone Screen Negative (Negative) Urine Methadone Screen Negative (Negative) Ur Barbiturates Screen Negative (Negative) U Tricyclic Antidepress Negative (Negative) Ur Phencyclidine Scrn Negative (Negative) Ur Amphetamines Screen Negative (Negative) U Methamphetamines Scrn Negative (Negative) Ur MDMA Scrn (Ecstasy) Negative (Negative) U Benzodiazepines Scrn Positive H (Negative) Urine Cocaine Screen Negative (Negative) U Marijuana (THC) Screen Positive H (Negative) Urine pH Normal (Normal) Urine Specific [place] Normal (Normal) Ur Creatinine Normal (Normal) Imaging Data Chest x-ray: Radiologist's Impression: [address] [address] XRay Report Signed Patient: Tiffanie Lee MR#: [id number] : 1955 Acct:[id number] Age/Sex: 69 / F Date of Service: 12/28/24 Loc: ED Accession Number: [id number] Procedure: XR chest 1V Ordering Provider: Jas Arrieta MD PROCEDURE: XR CHEST 1V INDICATIONS: Possible stroke TECHNIQUE: One view of the chest was acquired. COMPARISON: [facility], CR, XR CHEST 1V, 11/19/2024, 2:59. FINDINGS: Surgical changes and devices: None. Lungs and pleura: Lungs are clear. No pleural effusions or pneumothorax. Mediastinum: Mediastinal contours appear normal. Heart size is normal. Bones and chest wall: No suspicious bony lesions. Overlying soft tissues appear unremarkable. IMPRESSION: No acute pulmonary process. Dictated by: Isabella Daniel M.D. on 12/28/2024 at 0:41 Approved by: Isabella Daniel M.D. on 12/28/2024 at 0:41 CT scan - head: Radiologist's Impression: [place] [address] CT Scan Report Signed Patient: Tiffanie Lee MR#: [id number] : 1955 Acct:[id number] Age/Sex: 69 / F Date of Service: 12/28/24 Loc: ED Accession Number: [id number] Procedure: CT Stroke Ordering Provider: Jas Arrieta MD PROCEDURE: CT STROKE INDICATIONS: Positive BE-FAST, Stroke symptoms TECHNIQUE: Noncontrast 4.5 mm thick angled axial sections acquired from the foramen magnum to the vertex, with coronal reformats. For radiation dose reduction, the following was used: automated exposure control, adjustment of mA and/or kV according to patient size. COMPARISON: [facility], CT, CT ANGIO HEAD AND NECK, 12/28/2024, 0:08. FINDINGS: Image quality: Diagnostic. CSF spaces: Basal cisterns are patent. No extra-axial fluid collections. The ventricles are symmetric in size and shape. Brain: No intracranial bleeds or mass effect. There is cerebral volume loss, with resultant ventricular and sulcal prominence. There are periventricular and deep white matter chronic small vessel ischemic changes. There is intracranial internal carotid artery atherosclerosis. Skull and face: Calvarium and visualized facial bones appear intact, without suspicious lesions. Sinuses: Visualized sinuses and mastoids are clear. IMPRESSION: 1. No acute intracranial process. 2. Moderate atrophy and chronic microvascular ischemic changes. The above findings were discussed with Dr. Jas Arrieta on 12/28/2024 at 12:33 a.m. This study fulfills neurological imaging criteria for inclusion or exclusion of acute stroke therapies based on available published neurological guidelines. Dictated by: Isabella Daniel M.D. on 12/28/2024 at 0:33 Approved by: Isabella Daniel M.D. on 12/28/2024 at 0:35 CTA - brain/neck: Radiologist's Impression: [address] [address] [address] Scan Report Signed Patient: Tiffanie Lee MR#: [id number] : 1955 Acct:[id number] Age/Sex: 69 / F Date of Service: 12/28/24 Loc: ED Accession Number: [id number] Procedure: CT angio head and neck Ordering Provider: Jas Arrieta MD PROCEDURE: CT ANGIO HEAD AND NECK INDICATIONS: r/o stroke TECHNIQUE: After the administration of intravenous contrast, 1 mm thick sections acquired from the aortic arch through the [place]. 3-dimensional gmpiatf-lmszxlojx-odowmktkgu (MIP) and/or volume rendering reformats were acquired of the central intracranial vasculature and neck separately. For radiation dose reduction, the following was used: automated exposure control, adjustment of mA and/or kV according to patient size. COMPARISON: CT, CT HEAD/BRAIN WO CON, 12/27/2017, 20:55. [facility], CT, CT STROKE, 12/28/2024, 0:08. FINDINGS: Image quality: Diagnostic. Cerebral CT Angiogram: Internal carotid arteries: No acute findings. Intracranial ICA are patent with no significant stenosis. No occlusion. No aneurysm. Anterior cerebral arteries: Unremarkable. No significant stenosis. No occlusion. No aneurysm. Middle cerebral arteries: Unremarkable. No significant stenosis. No occlusion. No aneurysm. Posterior cerebral arteries: Unremarkable. No significant stenosis. No occlusion. No aneurysm. Basilar artery: Unremarkable. No significant stenosis. No occlusion. No aneurysm. Vertebral arteries: Unremarkable as visualized. Vertebral arteries are codominant. Dural venous sinuses: Unremarkable given phase of enhancement. Other: Arterial phase appearance of the brain parenchyma is unremarkable. Neck CT Angiogram: Internal carotid arteries: Unremarkable. No significant stenosis. No dissection or occlusion. Common carotid arteries: Unremarkable. No significant stenosis. No dissection or occlusion. External carotid arteries: Unremarkable. No occlusion. Vertebral arteries: Unremarkable. No significant stenosis. No dissection or occlusion. Aortic Arch and Mediastinum: Partially visualized aortic arch unremarkable without evidence of aneurysm. Origins of the great vessels unremarkable. Other: Arterial phase soft tissues of the neck and chest are unremarkable. IMPRESSION: No significant intracranial arterial abnormality is seen. No significant abnormality is seen within the arteries of the neck. Any quantitative measurements of stenosis were performed using NASCET criteria. Dictated by: Isabella Daniel M.D. on 12/28/2024 at 0:35 Approved by: Isabella Daniel M.D. on 12/28/2024 at 0:36 ECG Data Attestation: I personally reviewed and interpreted this ECG as follows: Interpretation: 0003, sinus tachycardia with rate of 106, no obvious ST segment elevation or depression changes. IL 160, QRS 182, QTC 443. MDM Narrative Medical decision making narrative: 69-year-old female with acute onset of dizziness lightheadedness 10:30 p.m. last night, triage as stroke alert. Sinus tachycardia however also noted. Afebrile, sirs screen negative. Unremarkable nonfocal neuro exam. Screening labs sent. EKG shows sinus tachycardia without obvious ischemic changes. Symptoms seemed to be resolved without specific treatment. CT head noncontrast, no acute changes. See radiology report. CT angiogram head and neck vessels. No thromboses or significant narrowing. See radiology report. Chest x-ray no acute changes. See radiology report. Initial troponin negative. IV fluid bolus. Potassium level 3.3 noted. IV potassium and oral potassium ordered. Repeat troponin also negative. Patient feels better after IV fluids/potassium. Tachycardia resolved, normal sinus rhythm on monitor. She would like to go home. Discharged home with family. Further follow up as an outpatient. Consider recheck potassium level later this week in clinic, to see if recurrent hypokalemia as a problem. Encouraged to drink plenty of fluids. Discharge Plan Departure Patient Disposition: Home Clinical Impression: Dizziness, Acute hypokalemia Activity Restrictions/Additional Instructions: Dizziness lightheaded symptoms, with initial triage fast heart rate sinus tachycardia noted. CT head study showed no stroke changes or acute changes. CT angiogram of the neck and the head vessels showed no narrowing or thrombosis changes. Abnormal vital sign tachycardia noted. Screening labs showed low potassium level. IV fluids and IV and oral potassium repletion given. Symptoms improved. Heart rate normalized. It is possible that your symptoms of lightheadedness and dizziness might have been related to dehydration, and/or low potassium level. EKG and serial blood tests not suggestive of heart attack at this time. Drink plenty of fluids as an outpatient. Consider recheck of your potassium level later this week, to see if it is recurring low level, and might warrant oral repletion therapy. Return earlier to this/nearest emergency department for any change worsening symptoms or any concerns prior. Prescriptions: No Action cholecalciferol (vitamin D3) 10,000 UNIT tablet 10,000 unit PO Qty: 0 duloxetine 60 mg capsule,delayed release(DR/EC) 60 mg PO QAM Qty: 90 3RF pimecrolimus [Elidel] 1 % cream 1 applic topical BID Qty: 60 1RF Referrals: Adrián Jones DO [Primary Care Provider, [facility]] Stand Alone Forms: Patient Portal/API
[2024-12-28] MEDS: POTASSIUM CHLORIDE IN WATER 10 MEQ/100 ML PIGGYBACK 100 MEQ IV ×2 (01:00→02:13)
[2024-12-28] MEDS: SODIUM CHLORIDE 0.9% 1,000 ML 1000 ML IV (01:16)
[2024-12-28] MEDS: POTASSIUM CHLORIDE 20 MEQ/15 ML UDC 40 MEQ PO (01:26)
[2024-12-28 02:19] LABS: Ur Creatinine Normal (Normal); Ur Specific Gravity Normal (Normal); Urine pH Normal (Normal)
[2024-12-28 02:20] LABS: UR Morphine/Opiate cutoff 300 Negative (Negative); Urine Amphetamines Negative (Negative); Urine Barbiturates Negative (Negative); Urine Benzodiazepines Positive (Negative); Urine Cocaine Negative (Negative); Urine MDMA Negative (Negative); Urine Methadone Negative (Negative); Urine Methamphetamines Negative (Negative); Urine Oxycodone Negative (Negative); Urine Phencyclidine Negative (Negative); Urine Tetrahydrocannabinol Positive (Negative); Urine Tricyclic Antidepressant Negative (Negative)
[2024-12-28 03:01] LABS: Troponin I < 0.012 ng/mL (0.01-0.034)
== END 2024-12-28 03:39 | disposition home or self-care (01) ==
PROVIDERS: Emergency Provider Emergency Medicine; PCP Family Medicine
DX: R42 Dizziness and giddiness (principal); E87.6 Hypokalemia; R00.0 Tachycardia, unspecified
CPT/HCPCS: 70450; 70496; 70498; 71045; 80053; 80305; 82550; 84484; 85025; 85610; 85730; 93005; 93010; 96365; 96366; 99284; Q9967

== ENCOUNTER 2024-12-29 12:24 | Emergency (ER) | payer MEDICARE, SELFPAY ==
[2024-12-29] VITALS (11 sets, daily range): BP systolic 127–142; BP diastolic 60–72; PULSE 64–74; RESP 16–24; TEMP 36.6; O2SAT 98–100; BMI 27.4
--- NOTE | 2024-12-29 13:40 | ED.GENADULT ---
HPI - General Adult General Chief complaint: Dizziness Stated complaint: Dizzy , back from Mondays ER visit , needs MRI Time Seen by Provider: 12/29/24 13:15 Source: patient Mode of arrival: Wheelchair History of Present Illness HPI narrative: Patient is a 69-year-old female with a past medical history of no significance presenting for multiple complaints. She states that she was seen here yesterday for similar symptoms, she states that she was feeling lightheaded, states that she feels like she is having ?brain fog. She is also complaining of shortness of breath but denies any chest pain. She states that she did not mention this yesterday, however she states that she was feeling those symptoms at that time. Patient states that she does have an appointment with her PCP and has not MRI ordered for tomorrow but due to persistent symptoms decided to come into the ED for further evaluation treatment. She is also complaining of diffuse weakness but on exam NIH of 0 no focal deficits denies any other symptoms such as headache visual disturbances fever nausea and vomiting abdominal pain or any other GI/ symptoms at this time Related Data Home Medications ?Medication ?Instructions ?Recorded ?Confirmed cholecalciferol (vitamin D3) 250 10,000 unit PO ##0 05/10/16 09/15/23 mcg (10,000 unit) tablet Previous Rx's ?Medication ?Instructions ?Recorded pimecrolimus 1 % topical cream 1 applic topical BID #60 grams 07/18/21 (Elidel) duloxetine 60 mg capsule,delayed 60 mg PO QAM #90 caps 09/15/23 release Allergies Allergy/AdvReac Type Severity Reaction Status Date / Time Opioids - Morphine Analogues Allergy Severe Migraines Verified 09/15/23 16:44 grass pollen (GRASS POLLEN) Allergy Intermediate hayfever Verified 09/15/23 16:44 mold (MOLD) Allergy Intermediate hayfever Verified 09/15/23 16:44 fentanyl Allergy Mild Nausea Verified 09/15/23 16:44 shellfish derived Allergy Verified 12/29/24 14:12 hydrocodone (From Vicodin) AdvReac Verified 09/15/23 16:44 dust Allergy Intermediate hayfever Uncoded 09/15/23 16:44 weeds Allergy Intermediate hayfever Uncoded 09/15/23 16:44 Review of Systems Review of Systems Narrative: General: Positive generalized weakness Denies fever, chills, weight loss HEENT: Denies headache, eye drainage, eye irritation, head trauma, sore throat, voice change Cardiovascular: Denies any chest pain, palpitations, tachycardia Respiratory: Positive shortness of breath, denies cough, wheeze, stridor GI/: Denies any abdominal pain, nausea, vomiting, diarrhea, bright red blood per rectum, melanotic stools, urinary frequency, urinary retention, dysuria, hematuria MSK: Denies any joint pain, muscle pains, swelling Skin: Denies any rashes, lesions, discoloration Neuro: Positive brain fog, Denies any headache, lightheadedness, dizziness, fainting Psych: Denies SI/HI Patient History Medical History Preventative health care Dermatitis (Unknown) Hiatal hernia (~02/2017) Depression (Unknown) GERD without esophagitis Duodenal ulcer Hypnic headache Costochondritis Surgical History Hx of eye surgery (1955) Hx of knee surgery (2004) Family History Father Cancer Mother Cancer Sister Cancer Social History Smoking Status: Never smoker alcohol intake: never Smoking Status: Never smoker alcohol intake frequency: 0-2 drinks per day Exam Narrative Exam Narrative: General: Cooperative, well-developed, not in acute distress HEENT: Normocephalic, atraumatic, PERRLA, normal sclera, eyelids normal Neck: Active full range of motion, atraumatic Chest: Normal to inspection, negative crepitus, no overlying erythema ecchymosis Respiratory: Normal respiratory effort, not in acute respiratory distress, clear to auscultation bilaterally negative cough, wheeze, tachypnea, rhonchi, rales Cardiology: Regular rate rhythm negative gallop, murmur, rubs GI/: No tenderness to palpation, soft, non rigid, normal to inspection, exam deferred MSK: Full active range of motion in all 4 extremities, atraumatic, no tenderness to palpation of any bony prominences Skin: No rashes or lesions noted Neuro: NIH of 0, no focal deficits Alert awake oriented x3, moves all 4 extremities spontaneously, cranial nerves intact, able to answer all questions appropriately follows commands appropriately Psych: Cooperative, negative suicidal or homicidal ideations Initial Vital Signs Initial Vital Signs: Vital Signs Temperature 97.9 F 12/29/24 12:28 Pulse Rate 69 12/29/24 12:28 Respiratory Rate 18 12/29/24 12:28 Blood Pressure 128/60 12/29/24 12:28 Pulse Oximetry 100 12/29/24 12:28 Oxygen Delivery Method Room Air 12/29/24 12:28 Course Orders Ordered: ED Orders 12/29/24 13:40 CT angio chest PE protocol Stat 12/29/24 13:41 EKG-12 Lead Stat 12/29/24 14:10 Complete Blood Count AUTO DIFF Stat Comprehensive Metabolic Panel Stat Lipase Stat MAG [Magnesium] Stat NT-proBNP (BNP-Adult 18+) Stat PTT Partial Thromboplastin Yossi Stat Prothrombin Time INR Stat Troponin & CK Cardiac Panel Stat Discontinued Medications Sodium Chloride (Normal Saline 0.9%) 1,000 mls @ 1,000 mls/hr IV BOLUS ONE Stop: 12/29/24 14:39 Last Admin: 12/29/24 14:29 Dose: 1,000 mls/hr Documented By: BT Vital Signs Vital signs: Vital Signs - 8 hr 12/29/24 12:28 12/29/24 12:35 12/29/24 12:35 Temperature 97.9 F Pulse Rate 69 74 Respiratory Rate 18 Blood Pressure 128/60 133/70 Pulse Oximetry 100 99 Oxygen Delivery Method Room Air 12/29/24 13:00 12/29/24 13:00 12/29/24 13:06 Temperature Pulse Rate 64 65 Respiratory Rate 19 21 Blood Pressure 133/67 Pulse Oximetry 98 Oxygen Delivery Method 12/29/24 13:06 12/29/24 13:30 12/29/24 13:30 Temperature Pulse Rate 69 Respiratory Rate 24 Blood Pressure 132/71 128/72 Pulse Oximetry 98 Oxygen Delivery Method 12/29/24 14:00 12/29/24 14:22 12/29/24 14:22 Temperature Pulse Rate 64 64 Respiratory Rate Blood Pressure 142/70 H Pulse Oximetry 99 99 Oxygen Delivery Method 12/29/24 14:30 12/29/24 14:30 Temperature Pulse Rate 68 Respiratory Rate 16 Blood Pressure 134/64 Pulse Oximetry 98 Oxygen Delivery Method Medical Decision Making Differential Diagnosis Differential Diagnosis: PE, ACS, pneumonia, electrolyte abnormality, Lab Data 12/29/24 14:10 12/29/24 14:10 Labs: Lab Results 12/29/24 Range/Units 14:10 WBC 6.6 (4.5-11.0) X10^3/uL RBC 4.18 (4.0-5.2) X10^6/uL Hgb 13.6 (12.0-16.0) g/dL Hct 39.5 (36-46) % MCV 94.5 (80-100) fL MCH 32.6 (26-34) PG MCHC 34.5 (30-36) % RDW 13.3 (11.6-14.8) % Plt Count 308 (150-400) X10^3/uL Neut % (Auto) 60.6 (50-75) % Lymph % (Auto) 27.0 (25-40) % [place] % (Auto) 8.0 (3-14) % Eos % (Auto) 3.3 (2-4) % Baso % (Auto) 1.1 (0-2) % Neut # (Auto) 4000 (2723-0536) /uL Lymph # (Auto) 1800 (6806-0911) /uL [place] # (Auto) 500 (0-900) /uL Eos # (Auto) 200 (0-450) /uL Baso # (Auto) 100 (0-100) /uL PT 11.0 (9.4-12.5) SECONDS INR 1.0 (0.9-1.3) APTT 35 (25.1-36.5) SECONDS Sodium 137 (137-145) mmol/L Potassium 4.3 (3.4-5.1) mmol/L Chloride 106 (98-107) mmol/L Carbon Dioxide 23 (22-32) mmol/L BUN 17 (7-17) mg/dL Creatinine 0.76 (0.52-1.04) mg/dL Estimated GFR > 60 (>60) mL/min BUN/Creatinine Ratio 22.4 H (6-22) Glucose 96 (70-99) mg/dL Calcium 9.7 (8.4-10.2) mg/dL Magnesium 1.9 (1.6-2.3) mg/dL Total Bilirubin 0.9 (0.2-1.3) mg/dL AST 41 H (14-36) IU/L ALT 28 (<35) IU/L Alkaline Phosphatase 43 (38-126) U/L Total Creatine Kinase 61 (30-135) U/L Troponin I < 0.012 (0.01-0.034) ng/mL NT-Pro-B Natriuret Pep 174 H (<125) pg/mL Total Protein 7.3 (6.3-8.2) g/dL Albumin 4.5 (3.5-5.0) g/dL Globulin 2.8 (1.7-4.1) g/dL Albumin/Globulin Ratio 1.6 (1.0-2.8) Lipase 99 (23-300) U/L Imaging Data CT PE: Radiologist's Impression: [address] [address] [address] Scan Report Signed Patient: Tiffanie Lee MR#: [id number] : 1955 Acct:[id number] Age/Sex: 69 / F Date of Service: 12/29/24 Loc: ED Accession Number: [id number] Procedure: CT angio chest PE protocol Ordering Provider: Warren Cox D.O. PROCEDURE: CT ANGIO CHEST PE PROTOCOL INDICATIONS: dyspnea TECHNIQUE: After the administration of intravenous contrast, 2 mm thick sections acquired from the pulmonary apices to the posterior costophrenic angles. 3-dimensional maximum intensity projection (MIP) coronal and sagittal reformats were then acquired through the thorax. For radiation dose reduction, the following was used: automated exposure control, adjustment of mA and/or kV according to patient size. COMPARISON: None. FINDINGS: Image quality: Diagnostic. Pulmonary arteries: Pulmonary arteries are normal in size, and demonstrate no intraluminal filling defects to suggest central pulmonary embolism. Lower Neck: No enlarged lymph nodes. Thyroid: No thyroid nodules which require sonographic follow up, per consensus guidelines. Axillae: No enlarged lymph nodes. Chest Wall: Unremarkable. Bones: Unremarkable. Lungs and Pleura: No pneumothorax or pleural effusions. No consolidation or suspicious nodules. Heart: Heart size is normal. No pericardial effusion. Thoracic Vessels: No aortic aneurysm. Mediastinum and [place]: No enlarged lymph nodes. Esophagus: No wall thickening. Small hiatal hernia. Upper Abdomen: Visualized upper abdomen solid organs and bowel loops appear normal. IMPRESSION: No pulmonary embolus. No acute cardiopulmonary process. ECG Data Interpretation: EKG interpreted ED physician sinus 64 beats per minute QTC 410, normal axis no STEMI MDM Narrative Medical decision making narrative: Patient is a 69-year-old female without any significant past medical history presenting from home for persistent lightheadedness brain fog. Patient was seen here yesterday had a workup that was negative but states that she has persistent lightheadedness/dizziness along with shortness of breath she states that she did not mention the shortness of breath yesterday but states that she was having it at that time. She states that she just feels like she is weak and has difficulty getting her words out. On exam however no slurring of speech no focal deficits NIH of 0. She states that she does have an appointment with her PCP and we will be getting an MRI tomorrow. She returns due to persistent symptoms. Review of records does show patient had CT CTA head and neck that did not show any acute finding. Patient did have CT PE scan without any signs of acute findings such as PE or pneumonia. Her lab work was unremarkable no leukocytosis Chem panel showing no electrolyte abnormalities. Patient does have appointment and schedule an MRI for tomorrow I informed her to follow up and have imaging done tomorrow. She was given strict return precautions verbalized understanding of this and agrees to being discharged home with outpatient follow up Discharge Plan Departure Patient Disposition: Home Clinical Impression: Brain fog Activity Restrictions/Additional Instructions: Please follow up with your primary care doctor for your scheduled appointment Please read the discharge instructions sheet carefully and bring all papers to all doctor follow-up visits, as it may contain information that your doctor may want to see. Disease processes change and evolve, if your symptoms worsen or if you develop any new symptoms that are concerning to you please return for evaluation. Your evaluation today does not show any evidence of any life-threatening/serious illnesses requiring admission to the hospital or surgery. Please follow-up with your doctor for re-evaluation in approximately 1 day. Seek immediate medical attention for any worrisome symptoms. *If you do not have a primary care provider please contact the [facility] Resource line at [phone]. They will ask some questions about your medical history and help get you set up with a doctor in the community. Prescriptions: No Action cholecalciferol (vitamin D3) 10,000 UNIT tablet 10,000 unit PO Qty: 0 duloxetine 60 mg capsule,delayed release(DR/EC) 60 mg PO QAM Qty: 90 3RF pimecrolimus [Elidel] 1 % cream 1 applic topical BID Qty: 60 1RF Referrals: Adrián Jones DO [Primary Care Provider, [facility]] Stand Alone Forms: Patient Portal/API
--- NOTE | 2024-12-29 14:02 | EKG_ITS ---
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
[2024-12-29 14:24] LABS: Add Manual Diff / Slide Review NO; Basophils Absolute Auto 100 /uL (0-100); Basophils Percent Auto 1.1 % (0-2); Eosinophils Absolute Auto 200 /uL (0-450); Eosinophils Percent Auto 3.3 % (2-4); Hematocrit 39.5 % (36-46); Hemoglobin 13.6 g/dL (12.0-16.0); Lymphocytes Absolute Auto 1800 /uL (1100-4500); Mean Corpuscular HGB Conc 34.5 % (30-36); Mean Corpuscular Hemoglobin 32.6 PG (26-34); Mean Corpuscular Volume 94.5 fL (80-100); Monocytes Absolute Auto 500 /uL (0-900); Neutrophils Absolute Auto 4000 /uL (1500-7000); Neutrophils Percent Auto 60.6 % (50-75); Platelet Count 308 X10^3/uL (150-400); Red Blood Cell Count 4.18 X10^6/uL (4.0-5.2); Red Cell Distribution Width 13.3 % (11.6-14.8); White Blood Cell Count 6.6 X10^3/uL (4.5-11.0)
[2024-12-29] MEDS: SODIUM CHLORIDE 0.9% 1,000 ML 1000 ML IV (14:29)
--- NOTE | 2024-12-29 14:32 | PC.NURSE ---
patient refused nasal viral swab.
--- NOTE | 2024-12-29 14:33 | PC.NURSE ---
patient denies nausea, states lack of appetite.
[2024-12-29 14:34] LABS: PTT Partial Thromboplastin Tim 35 SECONDS (25.1-36.5)
[2024-12-29 14:38] LABS: Alanine Aminotransferase 28 IU/L (<35); Albumin 4.5 g/dL (3.5-5.0); Albumin Globulin Ratio 1.6 (1.0-2.8); Alkaline Phosphatase 43 U/L (38-126); BUN Creatinine Ratio 22.4 (6-22); Bilirubin Total 0.9 mg/dL (0.2-1.3); Blood Urea Nitrogen 17 mg/dL (7-17); Calcium 9.7 mg/dL (8.4-10.2); Carbon Dioxide 23 mmol/L (22-32); Chloride 106 mmol/L (98-107); Creatine Kinase 61 U/L (30-135); Estimated Glomerular Filt Rate > 60 mL/min (>60); Globulin 2.8 g/dL (1.7-4.1); Glucose 96 mg/dL (70-99); Lipase 99 U/L (23-300); Magnesium 1.9 mg/dL (1.6-2.3); Potassium 4.3 mmol/L (3.4-5.1); Sodium 137 mmol/L (137-145); Total Protein 7.3 g/dL (6.3-8.2)
[2024-12-29 14:43] LABS: HEMOLYSIS 91 (0-50)
[2024-12-29 14:44] LABS: Aspartate Aminotransferase 41 IU/L (14-36)
[2024-12-29 14:50] LABS: NT-proBNP (BNP-Adult 18+) 174 pg/mL (<125); Troponin I < 0.012 ng/mL (0.01-0.034)
== END 2024-12-29 15:43 | disposition home or self-care (01) ==
PROVIDERS: Emergency Provider Student in an Organized Health Care Education/Training Program; PCP Family Medicine
DX: R42 Dizziness and giddiness (principal); R06.02 Shortness of breath; R53.1 Weakness; R44.8 Other symptoms and signs involving general sensations and perceptions
CPT/HCPCS: 36415; 71275; 80053; 82550; 83690; 83735; 83880; 84484; 85025; 85610; 85730; 93005; 96360; 99284; Q9967